=== PATIENT | female | born 1950 | race Caucasian/White ===

== ENCOUNTER → 2023-04-30 11:09 | Outpatient (REF) | payer MEDICARE, OTHER, SELFPAY | LOC: RAD 11:09 | PROVIDERS: ATTENDING PHYSICIAN Nurse Practitioner Family | DX: M25.512 Pain in left shoulder (principal) | CPT/HCPCS: 73030 ==

== ENCOUNTER 2023-05-08 06:19 | Day surgery (SDC) | payer MEDICARE, OTHER, SELFPAY ==
[2023-04-30 12:49] VITALS: BMI 22.5
[2023-05-08] VITALS (18 sets, daily range): BP systolic 129–167; BP diastolic 65–92; BMI 22.5
[2023-05-08] MEDS: NEURONTIN 300 MG PO (09:28)
[2023-05-08] MEDS: TYLENOL 1000 MG PO (09:28)
[2023-05-08] MEDS: HEPARIN 5000 UNITS SC (09:28)
[2023-05-08] MEDS: NORMOSOL-R 1000 IV (09:52)
[2023-05-08 11:25] LABS: Turbo PTH 2455 pg/ml (13.6-85.8)
[2023-05-08 12:04] LABS: Turbo PTH 72.9 pg/ml (13.6-85.8)
--- NOTE | 2023-05-08 12:43 | OR.RPT ---
Operative Report
Operative Report
Date of Operation: May 08, 2023
Preoperative Diagnosis: �Hyperparathyroidism - E210
Postoperative Diagnosis: Same
Surgeon: Floyd Quinteros M.D.
Operation: Minimally Invasive Inferior Parathyroidectomy - 00673
Anesthesia: GET
Estimated Blood Loss: 3 cc
Drains: None
Specimen: �Left inferior neck nodule, rule out parathyroid adenoma
Complications: �None
Procedure:
The patient was taken to the operating room and placed in the usual supine position. After adequate general endotracheal anesthesia was established, the patient's neck was extended, prepped, and draped in the typical sterile fashion. A 4 cm
transcervical incision was made two fingerbreadths above the sternal notch. The skin incision was made with the #15 blade, and this was taken through the skin into the subcutaneous tissue. The underlying platysma muscle was divided, and subplatysmal
flaps were created superiorly to the thyroid cartilage and inferiorly to the sternal notch. Strap muscles were identified and at the midline.
Attention was turned to the left side of the neck. The left thyroid lobe was mobilized medially. During this process, the left recurrent laryngeal nerve was identified and preserved throughout the surgery. The left lower neck nodule was identified
and noted to be enlarged, excised, and sent to the pathology department, which showed a hypercellular parathyroid gland. The normal-appearing left superior parathyroid gland was identified and preserved. The intraoperative PTH levels normalized.
After obtaining adequate hemostasis, the strap muscles were reapproximated with #3-0 Vicryl in a running fashion. The platysma muscle was reapproximated with #3-0 Vicryl in an interrupted fashion, and the skin was approximated with #4-0 Monocryl in
a running subcuticular fashion. The Steri-Strips and sterile dressings were placed. The patient tolerated the procedure well. The final instrument, needle, and sponge counts were correct. The patient was extubated and transferred to the PACU.
--- NOTE | 2023-05-08 16:57 | PTCARENOTE ---
Patient admitted from same day services post parathyroidectomy.She was supposed to go home but she is home alone with only neighbors to check on her so they decided to let her stay overnight with discharge tomorrow.The anterior neck dressing is
clean and intact with no drainage.vital signs are stable.The patient says herpain is not to bad but rates it at a 6 out of 10.the patient is in her chair with the call naidu in reach ordering her dinner.
[2023-05-08] MEDS: FEOSOL 325 MG PO (20:00)
[2023-05-08] MEDS: TYLENOL 650 MG PO (20:00)
[2023-05-08] MEDS: DESYREL 50 MG PO (23:19)
[2023-05-08] MEDS: LIPITOR 10 MG PO (23:19)
[2023-05-08] MEDS: LATUDA 60 MG PO (23:20)
[2023-05-09] MEDS: TYLENOL PO (00:24)
[2023-05-09] MEDS: TYLENOL 650 MG PO ×2 (03:22→08:15)
[2023-05-09 03:38] VITALS: BP 144/86
[2023-05-09 07:01] VITALS: BP 145/71
[2023-05-09] MEDS: LAMICTAL 25 MG PO (08:15)
[2023-05-09] MEDS: CLARITIN 10 MG PO (08:15)
[2023-05-09] MEDS: CELEXA 20 MG PO (08:15)
[2023-05-09] MEDS: FEOSOL 325 MG PO (08:15)
[2023-05-09] MEDS: NORVASC 10 MG PO (08:16)
[2023-05-09] MEDS: ESKALITH 300 MG PO (08:16)
--- NOTE | 2023-05-09 09:10 | W.DS.TRANS ---
DC Summary - [employer] Line [employer]
-
Discharge Instructions:
Sleep Apnea Risk Low
Discharge Diagnosis/Procedures hyperparathyroidism
Diet No restrictions
Activity No strenuous activity
Driving Restrictions No driving for 24 hours
Bathing Restrictions OK to Shower
Instructions:
Stand-Alone Forms:
Changes to Home Medications: No
Discharge Medications:
DC Medications w/original date entered in [employer]
amlodipine 10 mg tablet 10 mg PO DAILY 12/06/22
aspirin 81 mg capsule 81 mg PO DAILY 12/06/22
atorvastatin 10 mg tablet 10 mg PO HS 12/06/22
citalopram 40 mg tablet 20 mg PO DAILY 12/06/22
denosumab 60 mg/mL subcutaneous syringe (Prolia) 50 mg SC [id number] 12/06/22
ferrous sulfate 325 mg (65 mg iron) tablet 325 mg PO BID 12/06/22
lorazepam 0.5 mg tablet 0.5 mg PO Q12H 12/06/22
lurasidone 20 mg tablet 60 mg PO HS 12/06/22
trazodone 50 mg tablet 50 mg PO HS 12/06/22
Probiotic 1 cap PO DAILY 05/04/23
lamotrigine 25 mg tablet 25 mg PO DAILY 05/04/23
lithium carbonate 150 mg capsule 150 mg PO Q48H 05/04/23
lithium carbonate 150 mg capsule 300 mg PO Q48H 05/04/23
loratadine 10 mg tablet 10 mg PO DAILY 05/04/23
Home Medication Changes
Pending Results: No
--- NOTE | 2023-05-09 12:45 | CM ---
Addendum entered by Aram Whitfield 05/09/23 12:47:
Patient was outpatient status.
Original Note:
Patient medically cleared for discharge this am. Patient left building prior to initial assessment at 10:45am. Patient arranged for transport home.
== END 2023-05-09 11:24 | disposition home or self-care (01) ==
LOC: SDS 06:19
PROVIDERS: ATTENDING PHYSICIAN Surgery; FAMILY PHYSICIAN Nurse Practitioner Family
DX: D35.1 Benign neoplasm of parathyroid gland (principal); E21.0 Primary hyperparathyroidism
CPT/HCPCS: 60500; 88305; 88332; 83970; 88331

== ENCOUNTER → 2023-05-18 11:58 | Outpatient (REF) | payer MEDICARE, OTHER, SELFPAY ==
[2023-05-18 13:48] LABS: Albumin 4.1 g/dl (3.5-5.0); Blood Urea Nitrogen 23 mg/dl (7-17); Calcium 10.6 mg/dl (8.4-10.2); Carbon Dioxide 25 mmol/L (22-30); Chloride 106 mmol/L (98-107); Glucose 90 mg/dl (70-99); Phosphorus 4.7 mg/dl (2.5-4.5); Potassium 4.5 mmol/L (3.5-5.1); Sodium 137 mmol/L (135-145); eGFR 39.48
== END ==
LOC: REG 11:58
PROVIDERS: ATTENDING PHYSICIAN Internal Medicine; FAMILY PHYSICIAN Nurse Practitioner Family
DX: I10 Essential (primary) hypertension (principal); E78.2 Mixed hyperlipidemia; E83.52 Hypercalcemia; R80.9 Proteinuria, unspecified
CPT/HCPCS: 36415; 80069

== ENCOUNTER → 2023-07-13 13:33 | Outpatient (REF) | payer MEDICARE, OTHER, SELFPAY ==
[2023-07-13 14:58] LABS: Albumin 4.6 g/dl (3.5-5.0); Blood Urea Nitrogen 18 mg/dl (7-17); Carbon Dioxide 25 mmol/L (22-30); Chloride 104 mmol/L (98-107); Glucose 103 mg/dl (70-99); Phosphorus 4.7 mg/dl (2.5-4.5); Potassium 4.2 mmol/L (3.5-5.1); Sodium 137 mmol/L (135-145); eGFR 36.34
[2023-07-15 17:44] LABS: Phospholipase A2 Receptor, IgG <1:10 (<1:10)
[2023-07-15 21:07] LABS: ANA, IgG Reflex to HEp-2 Detected (None Detected)
[2023-07-16 01:30] LABS: Complement C3 132 mg/dl (88-165)
[2023-07-16 01:52] LABS: Myeloperoxidase Antibody 0 AU/mL (0-19); Serine Protease-3, IgG 0 AU/mL (0-19)
[2023-07-16 14:41] LABS: ANA, HEp-2, IgG Detected (<1:80)
[2023-07-17 07:27] LABS: ANA Pattern Homogeneous
== END ==
LOC: REG 13:33
PROVIDERS: ATTENDING PHYSICIAN Internal Medicine; FAMILY PHYSICIAN Nurse Practitioner Family
DX: I10 Essential (primary) hypertension (principal); E78.2 Mixed hyperlipidemia; E83.52 Hypercalcemia; E87.1 Hypo-osmolality and hyponatremia; R80.9 Proteinuria, unspecified; D50.9 Iron deficiency anemia, unspecified
CPT/HCPCS: 36415; 80069; 83516; 86038; 86039; 86160; 86255

== ENCOUNTER → 2023-07-20 14:00 | Outpatient (REF) | payer MEDICARE, OTHER, SELFPAY ==
[2023-07-20 14:39] LABS: Urine Albumin Trace (Neg - Trace); Urine Bilirubin Negative (Negative); Urine Character Slightly Cloudy (Clear); Urine Color Yellow; Urine Glucose Negative (Negative); Urine Ketone Negative (Negative); Urine Leukocyte 2+ (Negative); Urine Nitrite Negative (Negative); Urine Occult Blood Negative (Negative); Urine Specific Gravity 1.005 (<1.030); Urine Urobilinogen Negative (Neg - 1+)
[2023-07-20 14:46] LABS: Urine Squamous Cell 0-2 /LPF (Few)
[2023-07-20 14:51] LABS: Urine Bacteria Moderate (Negative); Urine White Cell 30-40 /HPF (0-5)
[2023-07-20 14:52] LABS: Urine Red Blood Cell 0-2 /HPF (0-2)
[2023-07-20 15:16] LABS: Protein/creatinine Ratio 1.5; Urine Protein 30 mg/dl
== END ==
LOC: REG 14:00
PROVIDERS: ATTENDING PHYSICIAN Internal Medicine; FAMILY PHYSICIAN Nurse Practitioner Family
DX: R80.9 Proteinuria, unspecified (principal)
CPT/HCPCS: 81003; 81015; 82570; 84156

== ENCOUNTER 2023-08-24 09:06 | Outpatient (RCR) | payer MEDICARE, OTHER, SELFPAY | END 2023-08-24 23:59 | disposition home or self-care (01) | LOC: RPT 09:06 | PROVIDERS: ATTENDING PHYSICIAN Nurse Practitioner Family | DX: R15.9 Full incontinence of feces (principal); N39.41 Urge incontinence; M62.81 Muscle weakness (generalized); R27.8 Other lack of coordination; Z73.6 Limitation of activities due to disability | CPT/HCPCS: 97162; 97530 ==

== ENCOUNTER → 2023-09-10 10:39 | Outpatient (REF) | payer MEDICARE, OTHER, SELFPAY ==
[2023-09-10 13:34] LABS: Albumin 4.1 g/dl (3.5-5.0); Blood Urea Nitrogen 25 mg/dl (7-17); Carbon Dioxide 26 mmol/L (22-30); Chloride 106 mmol/L (98-107); Glucose 88 mg/dl (70-99); Phosphorus 4.2 mg/dl (2.5-4.5); Potassium 4.8 mmol/L (3.5-5.1); Sodium 138 mmol/L (135-145); eGFR 36.34
== END ==
LOC: REG 10:39
PROVIDERS: ATTENDING PHYSICIAN Internal Medicine; FAMILY PHYSICIAN Nurse Practitioner Family
DX: R80.9 Proteinuria, unspecified (principal)
CPT/HCPCS: 36415; 80069

== ENCOUNTER 2023-09-17 15:57 | Outpatient (RCR) | payer MEDICARE, OTHER, SELFPAY | END 2023-09-17 23:59 | disposition home or self-care (01) | LOC: RPT 15:57 | PROVIDERS: ATTENDING PHYSICIAN Nurse Practitioner Family | DX: R15.9 Full incontinence of feces (principal); N39.41 Urge incontinence; M62.81 Muscle weakness (generalized); R27.8 Other lack of coordination; Z73.6 Limitation of activities due to disability | CPT/HCPCS: 97140; 97530 ==

== ENCOUNTER 2023-09-24 11:54 | Outpatient (RCR) | payer MEDICARE, OTHER, SELFPAY | END 2023-09-24 23:59 | disposition home or self-care (01) | LOC: RPT 11:54 | PROVIDERS: ATTENDING PHYSICIAN Nurse Practitioner Family | DX: R32 Unspecified urinary incontinence (principal); R15.9 Full incontinence of feces; N39.41 Urge incontinence; M62.81 Muscle weakness (generalized); R27.8 Other lack of coordination; Z73.6 Limitation of activities due to disability | CPT/HCPCS: 97140; 97530 ==

== ENCOUNTER → 2023-10-02 15:47 | Outpatient (REF) | payer MEDICARE, OTHER, SELFPAY | LOC: HWRAD 15:47 | PROVIDERS: ATTENDING PHYSICIAN Orthopaedic Surgery; FAMILY PHYSICIAN Nurse Practitioner Family | DX: M25.512 Pain in left shoulder (principal) | CPT/HCPCS: 73200 ==

== ENCOUNTER → 2023-10-03 10:43 | Outpatient (REF) | payer MEDICARE, OTHER, SELFPAY ==
[2023-10-03 13:16] LABS: Albumin 4.5 g/dl (3.5-5.0); Blood Urea Nitrogen 24 mg/dl (7-17); Calcium 11.1 mg/dl (8.4-10.2); Carbon Dioxide 24 mmol/L (22-30); Chloride 106 mmol/L (98-107); Glucose 99 mg/dl (70-99); Phosphorus 4.8 mg/dl (2.5-4.5); Potassium 4.7 mmol/L (3.5-5.1); Sodium 139 mmol/L (135-145); eGFR 36.34
== END ==
LOC: REG 10:43
PROVIDERS: ATTENDING PHYSICIAN Internal Medicine; FAMILY PHYSICIAN Nurse Practitioner Family
DX: E83.52 Hypercalcemia (principal); N18.32 Chronic kidney disease, stage 3b; N30.00 Acute cystitis without hematuria; R80.9 Proteinuria, unspecified
CPT/HCPCS: 36415; 80069

== ENCOUNTER → 2023-10-04 10:44 | Outpatient (REF) | payer MEDICARE, OTHER, SELFPAY ==
[2023-10-04 12:15] LABS: Urine Protein 25 mg/dl (0-12)
== END ==
LOC: REG 10:44
PROVIDERS: ATTENDING PHYSICIAN Internal Medicine; FAMILY PHYSICIAN Nurse Practitioner Family
DX: E83.52 Hypercalcemia (principal); N18.32 Chronic kidney disease, stage 3b; N30.00 Acute cystitis without hematuria; R80.9 Proteinuria, unspecified
CPT/HCPCS: 82570; 84156

== ENCOUNTER 2023-10-12 04:17 | Emergency (ER) | payer MEDICARE, OTHER, SELFPAY ==
[2023-10-12] VITALS (7 sets, daily range): BP systolic 146–178; BP diastolic 71–79; PULSE 60–70; O2SAT 99; BMI 21.5
--- NOTE | 2023-10-12 04:32 | ED.GENMED ---
History of Present Illness
<SHARIF Youssef - Last Filed: 10/12/23 07:07>
General
Chief Complaint: Fall
Source: patient
Exam Limitations: none
Time Seen by Provider: 10/12/23 04:31
Nursing documentation reviewed up to this point in time: agreed with
History of Present Illness
History of Present Illness:
73 year old female presents for evaluation of a fall. Pt endorses 2 falls from a seated position on 10/09 after experiencing a transient sensation of weakness prior to each fall. This morning, pt endorses a similar sensation while sitting in a chair
which prompted EMS arrival. She denies falling this morning. Pt did not hit her head or lose consciousness on 10/09 or this morning. Currently on ASA 81mg daily. Pt believes that she has not been eating enough recently with associated weight loss,
but denies any noticeable triggers for her sx. She notes that her daily dose of lorazepam was decreased from 4mg to 3mg on 10/09, but denies any other recent medication adjustments. She denies dizziness, vision changes, WHITE, N/V, CP, SOB, fever,
chills, urinary symptoms, and changes in bowel habits. No prior fall history. Pt does endorse becoming increasingly forgetful recently, currently lives alone.
Review of Systems
<SHARIF Youssef - Last Filed: 10/12/23 07:07>
Review of Systems
Allergies reviewed?: Yes
Constitutional: Reports no symptoms
EENT: Reports no symptoms
Respiratory: Reports no symptoms
Cardiac: Reports no symptoms
ABD/GI: Reports no symptoms
: Reports no symptoms
Musculoskeletal: Reports no symptoms
Skin: Reports no symptoms
Neurological: Reports weakness
Endocrine: Reports no symptoms
Hematologic/Lymphatic: Reports no symptoms
Psychiatric: Reports no symptoms
Phy Exam
<SHARIF Youssef - Last Filed: 10/12/23 07:07>
General Physical Exam
General Presentation: well appearing
General age: appears stated age
General Skin: warm
General Habitus: elderly
General Mental: alert
General Hydration: dry mucous membranes
ENT Exam
ENT Exam: normocephalic
Cardiovascular Exam
Cardiovascular Exam: regular rate/rhythm
Pulmonary Exam
Pulmonary Exam: lungs clear and no respiratory distress
Gastrointestinal Exam
Gastrointestinal Exam: normal bowel sounds
Neurological Exam
Neurological Exam: alert, oriented x3 and speech normal
Musculoskeletal Exam
Musculoskeletal Exam: other (no neck pain or TTP of spine )
Skin Exam
Skin Exam: normal color
Course
<German Norman, [facility] - Last Filed: 10/12/23 07:07>
Orders/Labs/Results
Orders:
Orders
10/12/23 04:28
Electrocardiogram (*1) Urgent
Reason for Study: Vertigo / Dizzy
Interrogate Pacemaker- Treatment ONCE
10/12/23 04:29
EKG- Treatment ONCE
10/12/23 04:30
Complete Blood Count/With Diff Urgent
Comprehensive Metabolic Panel Urgent
10/12/23 05:13
Urinalysis Reflex To Culture Urgent
Date Specimen was Collected: 10/12/23
Time Specimen was Collected: 05:12
Urine Microscopic Reflex Cult Urgent
Urine Culture Urgent
CROW Source: U
Specimen Description:
Date Specimen was Collected: 10/12/23
Time Specimen was Collected: 05:12
10/12/23 05:18
CT Head W/o Iv Contrast Urgent
Comment:
Reason For Exam: recent fall
10/12/23 06:54
Fosfomycin [Monurol] 3 gm PO ONCE ONE
10/12/23 07:12
Case Management Consult ONCE
Case Management Consult: VN/Home Care
Comment: frequent falls, dizziness
10/12/23 12:49
Code Status As Directed
Resuscitation Status: Full Code
Abnormal Lab Results
10/12/23 10/12/23
04:30 05:13
RBC 2.92 L 10^6/uL
(4.20-5.40)
Hgb 9.8 L g/dL
(12.0-16.0)
Hct 30.3 L %
(37.0-47.0)
MCV 103.8 H fL
(81.0-99.0)
MCH 33.6 H pg
(27.0-31.0)
MCHC 32.3 L g/dL
(33.0-37.0)
Lymphocytes % 19.5 L %
(20.5-51.1)
Monocytes % 9.9 H %
(1.7-9.3)
Chloride 109 H mmol/L
(98-107)
BUN 24 H mg/dl
(7-17)
Creatinine 1.4 H mg/dL
(0.6-1.0)
Calcium 11.1 H mg/dl
(8.4-10.2)
Urine Nitrite (Reflex) Positive A
(Negative)
Leukocyte Esterase Rfl 2+ A
(Negative)
Urine WBC (Reflex) 21-25 A /HPF
(0-5)
Urine Bacteria (Reflex) Many A
(Negative)
10/12/23 04:30
10/12/23 04:30
Vital Signs
Initial and Last Documented VS:
Initial Vital Signs
Temp Pulse Resp BP Pulse Ox
98.3 F 62 17 156/71 95
10/12/23 04:21 10/12/23 04:21 10/12/23 04:21 10/12/23 04:21 10/12/23 04:21
Last Documented Vital Signs
Temp Pulse Resp BP Pulse Ox
98.3 F 60 16 149/71 96
10/12/23 04:21 10/12/23 10:41 10/12/23 10:41 10/12/23 10:41 10/12/23 10:41
<Bruce Haddad, DO - Last Filed: 10/12/23 07:10>
Orders/Labs/Results
Orders:
Orders
10/12/23 04:28
Electrocardiogram (*1) Urgent
Reason for Study: Vertigo / Dizzy
Interrogate Pacemaker- Treatment ONCE
10/12/23 04:29
EKG- Treatment ONCE
10/12/23 04:30
Complete Blood Count/With Diff Urgent
Comprehensive Metabolic Panel Urgent
10/12/23 05:13
Urinalysis Reflex To Culture Urgent
Date Specimen was Collected: 10/12/23
Time Specimen was Collected: 05:12
Urine Microscopic Reflex Cult Urgent
Urine Culture Urgent
CROW Source: U
Specimen Description:
Date Specimen was Collected: 10/12/23
Time Specimen was Collected: 05:12
10/12/23 05:18
CT Head W/o Iv Contrast Urgent
Comment:
Reason For Exam: recent fall
10/12/23 06:54
Fosfomycin [Monurol] 3 gm PO ONCE ONE
10/12/23 07:12
Case Management Consult ONCE
Case Management Consult: VN/Home Care
Comment: frequent falls, dizziness
10/12/23 12:49
Code Status As Directed
Resuscitation Status: Full Code
Abnormal Lab Results
10/12/23 10/12/23
04:30 05:13
RBC 2.92 L 10^6/uL
(4.20-5.40)
Hgb 9.8 L g/dL
(12.0-16.0)
Hct 30.3 L %
(37.0-47.0)
MCV 103.8 H fL
(81.0-99.0)
MCH 33.6 H pg
(27.0-31.0)
MCHC 32.3 L g/dL
(33.0-37.0)
Lymphocytes % 19.5 L %
(20.5-51.1)
Monocytes % 9.9 H %
(1.7-9.3)
Chloride 109 H mmol/L
(98-107)
BUN 24 H mg/dl
(7-17)
Creatinine 1.4 H mg/dL
(0.6-1.0)
Calcium 11.1 H mg/dl
(8.4-10.2)
Urine Nitrite (Reflex) Positive A
(Negative)
Leukocyte Esterase Rfl 2+ A
(Negative)
Urine WBC (Reflex) 21-25 A /HPF
(0-5)
Urine Bacteria (Reflex) Many A
(Negative)
10/12/23 04:30
10/12/23 04:30
Vital Signs
Initial and Last Documented VS:
Initial Vital Signs
Temp Pulse Resp BP Pulse Ox
98.3 F 62 17 156/71 95
10/12/23 04:21 10/12/23 04:21 10/12/23 04:21 10/12/23 04:21 10/12/23 04:21
Last Documented Vital Signs
Temp Pulse Resp BP Pulse Ox
98.3 F 60 16 149/71 96
10/12/23 04:21 10/12/23 10:41 10/12/23 10:41 10/12/23 10:41 10/12/23 10:41
<Jj Redman PA-C - Last Filed: 10/14/23 07:14>
Orders/Labs/Results
Orders:
Orders
10/12/23 04:28
Electrocardiogram (*1) Urgent
Reason for Study: Vertigo / Dizzy
Interrogate Pacemaker- Treatment ONCE
10/12/23 04:29
EKG- Treatment ONCE
10/12/23 04:30
Complete Blood Count/With Diff Urgent
Comprehensive Metabolic Panel Urgent
10/12/23 05:13
Urinalysis Reflex To Culture Urgent
Date Specimen was Collected: 10/12/23
Time Specimen was Collected: 05:12
Urine Microscopic Reflex Cult Urgent
Urine Culture Urgent
CROW Source: U
Specimen Description:
Date Specimen was Collected: 10/12/23
Time Specimen was Collected: 05:12
10/12/23 05:18
CT Head W/o Iv Contrast Urgent
Comment:
Reason For Exam: recent fall
10/12/23 06:54
Fosfomycin [Monurol] 3 gm PO ONCE ONE
10/12/23 07:12
Case Management Consult ONCE
Case Management Consult: VN/Home Care
Comment: frequent falls, dizziness
10/12/23 12:49
Code Status As Directed
Resuscitation Status: Full Code
Abnormal Lab Results
10/12/23 10/12/23
04:30 05:13
RBC 2.92 L 10^6/uL
(4.20-5.40)
Hgb 9.8 L g/dL
(12.0-16.0)
Hct 30.3 L %
(37.0-47.0)
MCV 103.8 H fL
(81.0-99.0)
MCH 33.6 H pg
(27.0-31.0)
MCHC 32.3 L g/dL
(33.0-37.0)
Lymphocytes % 19.5 L %
(20.5-51.1)
Monocytes % 9.9 H %
(1.7-9.3)
Chloride 109 H mmol/L
(98-107)
BUN 24 H mg/dl
(7-17)
Creatinine 1.4 H mg/dL
(0.6-1.0)
Calcium 11.1 H mg/dl
(8.4-10.2)
Urine Nitrite (Reflex) Positive A
(Negative)
Leukocyte Esterase Rfl 2+ A
(Negative)
Urine WBC (Reflex) 21-25 A /HPF
(0-5)
Urine Bacteria (Reflex) Many A
(Negative)
10/12/23 04:30
10/12/23 04:30
Vital Signs
Initial and Last Documented VS:
Initial Vital Signs
Temp Pulse Resp BP Pulse Ox
98.3 F 62 17 156/71 95
10/12/23 04:21 10/12/23 04:21 10/12/23 04:21 10/12/23 04:21 10/12/23 04:21
Last Documented Vital Signs
Temp Pulse Resp BP Pulse Ox
98.3 F 60 16 149/71 96
10/12/23 04:21 10/12/23 10:41 10/12/23 10:41 10/12/23 10:41 10/12/23 10:41
<SHARIF Youssef - Last Filed: 10/12/23 07:07>
MDM/Problems Addressed
Differential Diagnosis Includes:
BPPV, Meniere's disease, CVA, anemia, dehydration
<SHARIF Youssef - Last Filed: 10/12/23 07:07>
*Critical Care Note
Total Time (30-74mins, 75-104mins- exclusive of procedures): Not Applicable
<Jj Redman PA-C - Last Filed: 10/14/23 07:14>
Update Note
Update Note:
October 14, 2023 7:14 AM: Urine culture shows greater than 100,000 colony-forming units of E. coli. Patient treated with fosfomycin. Sensitivities pending
ED Attending Note
<SHARIF Youssef - Last Filed: 10/12/23 07:07>
-
Portions of this chart may have been created with voice recognition software.� Occasional wrong word or��sound alike� substitutions may have occurred due to the inherent limitations of voice recognition software.
<Bruce Haddad DO - Last Filed: 10/12/23 07:10>
ED Attending Note
Patient seen and examined by attending physician: Yes
I performed the substantive portion of visit, reviewed & personally made and approve the management plan that is documented in note by myself or LYNN.: Yes
ED Attending Note:
This is a pleasant 73f, who presents after a fall from the seated position. She was sitting in a chair when she experienced weakness. She has fallen several times over the past few days. Patient still complaining of dizziness. She lives alone in her
home. She denies any other complaints. Patient was seen in conjunction with the PA student. I have reviewed and agree with his history and treatment plan. On my independant examination, Patient is awake, alert, and oriented x3. In no acute distress.
No horizontal or vertical nystagmus.
Discharge Plan
Departure
Patient Disposition: Home (Routine Discharge)
Date of Disposition: 10/12/23
Time of Disposition: 10:30
Patient with high blood pressure during this ER visit?: Yes
Discharge Problem:
Acute UTI, Weakness, Falls frequently
Instructions: Urinary tract infections in adults, Preventing falls in adults, BLOOD PRESSURE
Prescriptions:
No Action
citalopram 40 mg Tablet
40 mg PO HS
trazodone 50 mg Tablet
50 mg PO HS
atorvastatin 10 mg Tablet
10 mg PO NOON
lorazepam 0.5 mg Tablet
0.5 mg PO TID
amlodipine 10 mg Tablet
10 mg PO NOON
ferrous sulfate 325 mg (65 mg iron) Tablet
325 mg PO NOON
lurasidone 20 mg Tablet
60 mg PO HS
Patient Comments:
10/12/23: fills 40mg and 20mg tablets, unsure of the strengths/amounts she takes.
aspirin 81 mg Capsule
81 mg PO NOON
lithium carbonate 150 mg Capsule
150 mg PO HS
lamotrigine 25 mg Tablet
25 mg PO HS
Patient Comments:
10/12/23: fills 50mg and 25mg tablets, unsure of the strength/amounts she takes.
loratadine 10 mg Tablet
10 mg PO NOON
losartan 50 mg Tablet
50 mg PO NOON
acetaminophen [Tylenol Ex Str Rapid Release] 500 mg Tablet
1,500 mg PO DAILYPRN PRN (Reason: mild pain)
aripiprazole 2 mg Tablet
2 mg PO HS
Visbiome 112.5 billion cell Capsule
1 cap PO NOON
Referrals:
Korin Gaines CRNP [Family Provider] - Call in 1-3 days for appt
Interventions
Interventions:
*Risk Screen - Suicide Last Done: 10/12/23 04:21
*General Assessment Last Done: 10/12/23 04:21
*Neglect/Abuse Screening Last Done: 10/12/23 04:21
ED- Fall Risk Assessment Last Done: 10/12/23 04:21
*ED COVID-19 Vaccine History Last Done: 10/12/23 04:21
*Nursing Disposition Last Done: 10/12/23 10:41
ED-Musculoskeletal Assessment Last Done: 10/12/23 04:51
ED- Neurological Assessment Last Done: 10/12/23 04:51
ED-Skin Assessment Last Done: 10/12/23 04:51
Discharge Date and Time
Discharge Date/Time: 10/12/23 10:59
Print Language: GERMAN
[2023-10-12 05:50] LABS: % Basophils 0.3 % (0-2); % Eosinophils 1.4 % (0-6); % Immature Granulocytes 0.2 % (0-0.5); % Lymphocytes 19.5 % (20.5-51.1); % Monocytes 9.9 % (1.7-9.3); % Neutrophils 68.7 % (42.2-75.2); Hematocrit 30.3 % (37.0-47.0); Hemoglobin 9.8 g/dL (12.0-16.0); Mean Corp Hgb Conc. 32.3 g/dL (33.0-37.0); Mean Corpuscular Hgb 33.6 pg (27.0-31.0); Mean Corpuscular Volume 103.8 fL (81.0-99.0); Mean Platelet Volume 9.4 fL (7.4-10.4); Platelet Count 204 10^3/uL (130-400); Red Blood Cell Count 2.92 10^6/uL (4.20-5.40); Red Cell Dist. Width 13.6 % (11.5-14.5); White Blood Cell Count 6.5 10^3/uL (4.8-10.8)
[2023-10-12 05:51] LABS: Absolute Eosinophils 0.1 10^3/uL (0-0.7); Absolute Lymphocytes 1.3 10^3/uL (1.2-3.4); Absolute Monocytes 0.6 10^3/uL (0.1-0.6); Absolute Neutrophils 4.4 10^3/uL (1.4-6.5); Nucleated Red Blood Cells % 0 %
[2023-10-12 06:04] LABS: ALT (SGPT) 32 U/L (0-35); AST (SGOT) 35 U/L (14-36); Albumin 4.3 g/dl (3.5-5.0); Alkaline Phosphatase 120 U/L (38-126); Blood Urea Nitrogen 24 mg/dl (7-17); Calcium 11.1 mg/dl (8.4-10.2); Carbon Dioxide 24 mmol/L (22-30); Chloride 109 mmol/L (98-107); Estimated Creatinine Clearance 29 ml/min; Glucose 96 mg/dl (70-99); Potassium 4.4 mmol/L (3.5-5.1); Sodium 140 mmol/L (135-145); Total Bilirubin 0.3 mg/dl (0.2-1.3); Total Protein 6.9 g/dl (6.3-8.2); eGFR 39.23
[2023-10-12 06:38] LABS: Urine Albumin Negative (Neg - Trace); Urine Bilirubin Negative (Negative); Urine Character Clear (Clear); Urine Color Yellow; Urine Glucose Negative (Negative); Urine Ketone Negative (Negative); Urine Leukocyte 2+ (Negative); Urine Nitrite Positive (Negative); Urine Occult Blood Negative (Negative); Urine Urobilinogen Negative (Neg - 1+)
[2023-10-12] MEDS: MONUROL 3 GM PO (07:22)
[2023-10-12 08:31] LABS: Urine Urothelial Cell 0-2 /LPF (FEW)
[2023-10-12 08:32] LABS: Urine Amorphous Seen; Urine Bacteria Many (Negative); Urine Red Blood Cell 0-2 /HPF (0-2); Urine White Cell 21-25 /HPF (0-5)
--- NOTE | 2023-10-12 09:34 | CM ---
Addendum entered by Marcy London 10/12/23 12:49:
Tash from [facility] accepted patient for PT/OT/SN. CM manually faxed over clinicals to Tash at [phone]. Referral sent to [facility] via online link.
Addendum entered by Marcy London 10/12/23 09:55:
Informed patient that would be calling her to set up her first appointment. Patient verbalized understanding and reiterated that she would be using her Rolator from now on when ambulating around her apartment. She stated that she had a recycler forklift driver truck driver who
could possibly transport her back home. If her recycler forklift driver truck driver is unavailable she will use the '[employer]' service. She was also agreeable to have a [facility] referral placed as well.
Addendum entered by Marcy London 10/12/23 09:45:
Case Management attempted to call [facility], no one answered. Left to call CM back at cell phone number.
Original Note:
CM reviewed chart. Patient has been having falls at home. PT/OT evaluated patient and recommending STR. Patient has Medicare, and it would be private pay. Patient shared that she would not be able to afford STR.
Patient would like to have home PT/OT.
CM will place referrals, once [employer] is up and running again. IT is currently looking into the situation.
== END 2023-10-12 10:59 | disposition home or self-care (01) ==
LOC: EMR 04:17
PROVIDERS: EMERGENCY PHYSICIAN Student in an Organized Health Care Education/Training Program; FAMILY PHYSICIAN Nurse Practitioner Family
DX: N39.0 Urinary tract infection, site not specified (principal); B96.20 Unspecified Escherichia coli [E. coli] as the cause of diseases classified elsewhere; R53.1 Weakness; R42 Dizziness and giddiness; R29.6 Repeated falls; Z79.82 Long term (current) use of aspirin
CPT/HCPCS: 99285; 51701; 93288; 70450; 80053; 81003; 81015; 85025; 87086; 87088; 87186; 93005

== ENCOUNTER 2023-10-14 13:01 | Emergency (ER) | payer MEDICARE, OTHER, SELFPAY ==
[2023-10-14 13:08] VITALS: BP 155/86
--- NOTE | 2023-10-14 16:13 | ED.MUSCINJ ---
HPI-Injury
General
Chief Complaint: Musculo-Skeletal Complaint
Source: patient
Exam Limitations: none
Time Seen by Provider: 10/14/23 15:53
Nursing documentation reviewed up to this point in time: agreed with
History of Present Illness-Injury
Is this injury a work related problem?: No
Is pt an associate of [facility]?: No
Initial Injury comments:
Patient to ED with complaint of pain to left shoulder. She has been evaluated by orthopedics, is scheduled for joint replacement surgery in Dec. States she cant tolerate the pain. 2nd opinion with Lydia scheduled for sunday. SHe has been
taking tylenol without relief. She takes Lorazepam TiD for anxiety and her providers will not agree to narcotic pain medications due to her lorazepam use. Came to ED today due to pain. Pain is worse with movement. No new injury. Denies
fever/chills, recent illness.
Past History
Past History
ED Past Medical History: HTN and Psychiatric
Review of Systems
Review of Systems
Allergies reviewed?: Yes
All Other Systems: ROS reviewed and negative except as documented in HPI and ROS
Constitutional: Reports no symptoms
EENT: Reports no symptoms
Respiratory: Reports no symptoms
Cardiac: Reports no symptoms
ABD/GI: Reports no symptoms
Musculoskeletal: Reports joint pain (left shoulder pain)
Skin: Reports no symptoms
Neurological: Reports no symptoms
Psychiatric: Reports no symptoms
Musculoskeletal Injury Exam
Musculoskeletal Injury Exam
Left Shoulder:
Pain with Movement?: Severe
Tender to palpation?: Moderate
Soft tissue swelling?: Moderate
External deformity and angulation?: None
Joint effusion?: None
Contusion?: None
Hematoma-local bleeding into tissue?: None
Strain- Sprain- Tear (Connective tissue injury)?: None
Crepitus with movement?: Yes
Joint instability?: No
Malalignment/deformity?: No
Range of motion: Limited
Distal skin color and temperature: normal-warm & good color
Capillary Refill: normal
Normal distal neurovascular exam?: Yes
Peripheral Pulses: radial (left): 3+
Phy Exam
General Physical Exam
General Presentation: well appearing and mild distress
General age: appears stated age
General Skin: warm
General Habitus: normal
General Mental: alert
Cardiovascular Exam
Cardiovascular Exam: regular rate/rhythm and no edema
Pulmonary Exam
Pulmonary Exam: lungs clear and no respiratory distress
Musculoskeletal Exam
Musculoskeletal Exam: neuro vasc intact and other (Pain mild swelling left shoulder. Comfortable at rest, severe pain with movement.)
Skin Exam
Skin Exam: normal color, warm/dry and no rash
Psychiatric Exam
Psychiatric Exam: normal mood/affect
Injury Course
Orders/Labs/Results
Orders:
Orders
10/14/23 16:00
Lidocaine [Lidocaine 4% Patch] 1 patch TOPICAL NOW STA
Apply Lidocaine patch(s) to:: left shoulder
*Critical Care Note
Total Time (30-74mins, 75-104mins- exclusive of procedures): Not Applicable
Update Note
Update Note:
Patient to ED with left shoulder pain. Has joint replacement scheduled for dec but reports pain continues to worsen. No fever/chills, no erythema of joint. No history of trauma. Pain is worse with movement. No chest pain or pressure. Will try
lidocaine patch. She is discharged home and will follow [facility]w [facility] on .
ED Attending Note
-
Portions of this chart may have been created with voice recognition software.� Occasional wrong word or��sound alike� substitutions may have occurred due to the inherent limitations of voice recognition software.
Discharge Plan
Departure
Patient Disposition: Home (Routine Discharge)
Date of Disposition: 10/14/23
Time of Disposition: 16:11
Patient with high blood pressure during this ER visit?: No
Condition: Good
Covid-19: Not Applicable
Discharge Problem:
Shoulder joint pain
Instructions: Using Cold for Pain, Shoulder Pain ED
Prescriptions:
New
lidocaine 5 % adhesive patch,medicated
1 patch topical DAILY Qty: 15 0RF
No Action
citalopram 40 mg Tablet
40 mg PO HS
trazodone 50 mg Tablet
50 mg PO HS
atorvastatin 10 mg Tablet
10 mg PO NOON
lorazepam 0.5 mg Tablet
0.5 mg PO TID
amlodipine 10 mg Tablet
10 mg PO NOON
ferrous sulfate 325 mg (65 mg iron) Tablet
325 mg PO NOON
lurasidone 20 mg Tablet
60 mg PO HS
Patient Comments:
10/12/23: fills 40mg and 20mg tablets, unsure of the strengths/amounts she takes.
aspirin 81 mg Capsule
81 mg PO NOON
lithium carbonate 150 mg Capsule
150 mg PO HS
lamotrigine 25 mg Tablet
25 mg PO HS
Patient Comments:
10/12/23: fills 50mg and 25mg tablets, unsure of the strength/amounts she takes.
loratadine 10 mg Tablet
10 mg PO NOON
losartan 50 mg Tablet
50 mg PO NOON
acetaminophen [Tylenol Ex Str Rapid Release] 500 mg Tablet
1,500 mg PO DAILYPRN PRN (Reason: mild pain)
aripiprazole 2 mg Tablet
2 mg PO HS
Visbiome 112.5 billion cell Capsule
1 cap PO NOON
Referrals:
Korin Gaines CRNP [Family Provider] - Tomorrow
Activity Restrictions/Additional Instructions:
Follow up at your scheduled orthopedic appointment on Sunday
Interventions
Interventions:
*Risk Screen - Suicide Last Done: 10/14/23 16:33
*General Assessment Last Done: 10/14/23 13:16
*Neglect/Abuse Screening Last Done: 10/14/23 16:33
ED- Fall Risk Assessment Last Done: 10/14/23 16:33
*ED COVID-19 Vaccine History Last Done: 10/14/23 13:16
*Nursing Disposition Last Done: 10/14/23 16:43
ED-Musculoskeletal Assessment Last Done: 10/14/23 14:47
Discharge Date and Time
Discharge Date/Time: 10/14/23 16:50
Print Language: [place] ISLAND[place]
[2023-10-14 16:28] VITALS: BMI 20.9
[2023-10-14] MEDS: LIDOCAINE 4% PATCH 1 PATCH TOPICAL (16:29)
[2023-10-14 16:32] VITALS: BP 154/80
== END 2023-10-14 16:50 | disposition home or self-care (01) ==
LOC: EMR 13:01
PROVIDERS: EMERGENCY PHYSICIAN Emergency Medicine; FAMILY PHYSICIAN Nurse Practitioner Family
DX: M25.512 Pain in left shoulder (principal)
CPT/HCPCS: 99282

== ENCOUNTER 2023-10-23 04:26 | Emergency (ER) | payer MEDICARE, OTHER, SELFPAY ==
[2023-10-23 04:29] VITALS: BMI 22.1
--- NOTE | 2023-10-23 04:32 | ED.GENMED ---
History of Present Illness
General
Chief Complaint: Musculo-Skeletal Complaint
Time Seen by Provider: 10/23/23 04:29
History of Present Illness
History of Present Illness:
HPI: The patient presents with pain in the left arm/shoulder region. She has had pain similar to this in the past. She called an ambulance because the pain was severe. She normally responds to Lidoderm patches however her neighbor was not
immediately available to place the patch. She came in here by ambulance to get a lidocaine patch. She denies any injury. She denies any chest pain.
EXAM:
GENERAL: Well appearing but in mild to moderate distress due to pain at the left shoulder
HEENT: Moist oral mucosa
NEUROLOGIC: Fair strength all extremities, no coordination deficits
PSYCHIATRIC: Appropriate mental status, normal insight and judgement
EXTREMITIES: Marked edema to the left lower extremity which is chronic, markedly decreased active range of motion at the left shoulder which is acute on chronic, there is tenderness at the left AC joint
SKIN: No rash, no lesions
TIME OF INITIAL ENCOUNTER: 4:30 AM
NUMBER AND COMPLEXITY OF PROBLEMS ADDRESSED AT THE ENCOUNTER
� Chronic conditions affecting care: High blood pressure, hyperlipidemia, CKD, anxiety/bipolar
� Acute Exacerbation and/or Progression of Chronic Illness: This is an acute on chronic problem
� Differential Diagnosis includes: Acute exacerbation of chronic pain, doubt ACS as she has had similar episodes in the past and denies any chest pain
AMOUNT AND/OR COMPLEXITY OF DATA TO BE REVIEWED AND ANALYZED
� I performed an independent evaluation of and my interpretation is:
EKG:
CT:
X-rays:
Laboratory Studies:
Other:
� Review of other/old records: I reviewed CT imaging from earlier this month confirms osteoarthritis
� Clinical information was obtained by an independent historian: I spoke to EMS at bedside upon their arrival
� Prescriptions/Medications Considered but not given:
� Further testing considered but not performed: Consider imaging however the patient just had a CT of the left upper extremity that showed severe glenohumeral joint osteoarthritis
RISK OF COMPLICATIONS AND/OR MORBIDITY OR MORTALITY OF PATIENT MANAGEMENT
� Social determinants of health affecting care: [place]
� Discussion with other providers:
� Escalation of care including admission/observation vs risk of discharge considered: The patient primarily came here because she could not get a lidocaine patch on herself and had no neighbor to help. I have ordered lidocaine
patch. She has already been seen by orthopedics.
Past History
Past History
ED Past Medical History: HTN and Psychiatric
Phy Exam
Physical Exam
Physical Exam:
See HPI
Course
Orders/Labs/Results
Orders:
Orders
10/23/23 04:30
Lidocaine [Lidocaine 4% Patch] 1 patch TOPICAL NOW STA
Apply Lidocaine patch(s) to:: LUE
*Critical Care Note
Total Time (30-74mins, 75-104mins- exclusive of procedures): Not Applicable
ED Attending Note
-
Portions of this chart may have been created with voice recognition software.� Occasional wrong word or��sound alike� substitutions may have occurred due to the inherent limitations of voice recognition software.
Discharge Plan
Departure
Patient Disposition: Home (Routine Discharge)
Date of Disposition: 10/23/23
Time of Disposition: 04:30
Patient with high blood pressure during this ER visit?: Yes
Discharge Problem:
Arm pain, musculoskeletal
Instructions: Muscle and Bone Pain (DC)
Prescriptions:
No Action
citalopram 40 mg Tablet
40 mg PO HS
trazodone 50 mg Tablet
50 mg PO HS
atorvastatin 10 mg Tablet
10 mg PO NOON
lorazepam 0.5 mg Tablet
0.5 mg PO TID
amlodipine 10 mg Tablet
10 mg PO NOON
ferrous sulfate 325 mg (65 mg iron) Tablet
325 mg PO NOON
lurasidone 20 mg Tablet
60 mg PO HS
Patient Comments:
10/12/23: fills 40mg and 20mg tablets, unsure of the strengths/amounts she takes.
aspirin 81 mg Capsule
81 mg PO NOON
lithium carbonate 150 mg Capsule
150 mg PO HS
lamotrigine 25 mg Tablet
25 mg PO HS
Patient Comments:
10/12/23: fills 50mg and 25mg tablets, unsure of the strength/amounts she takes.
loratadine 10 mg Tablet
10 mg PO NOON
losartan 50 mg Tablet
50 mg PO NOON
acetaminophen [Tylenol Ex Str Rapid Release] 500 mg Tablet
1,500 mg PO DAILYPRN PRN (Reason: mild pain)
aripiprazole 2 mg Tablet
2 mg PO HS
Visbiome 112.5 billion cell Capsule
1 cap PO NOON
lidocaine 5 % adhesive patch,medicated
1 patch topical DAILY Qty: 15 0RF
Referrals:
Uli Gordon MD [Active] - Follow up in 5-7 days
Activity Restrictions/Additional Instructions:
Continue using lidocaine patches in the daytime and take them off at night. Return here if worse. Follow with your doctors.
Interventions
Interventions:
*Risk Screen - Suicide Last Done: 10/23/23 04:29
*General Assessment Last Done: 10/23/23 04:31
*Neglect/Abuse Screening Last Done: 10/23/23 04:29
ED-Musculoskeletal Assessment Last Done: 10/23/23 04:28
Discharge Date and Time
Print Language: GREENLANDIC
[2023-10-23] MEDS: LIDOCAINE 4% PATCH 1 PATCH TOPICAL (04:35)
== END 2023-10-23 05:09 | disposition home or self-care (01) ==
LOC: EMR 04:26
PROVIDERS: EMERGENCY PHYSICIAN Emergency Medicine; FAMILY PHYSICIAN Nurse Practitioner Family
DX: M79.622 Pain in left upper arm (principal); M79.602 Pain in left arm; M19.012 Primary osteoarthritis, left shoulder; I12.9 Hypertensive chronic kidney disease with stage 1 through stage 4 chronic kidney disease, or unspecified chronic kidney disease; N18.9 Chronic kidney disease, unspecified; E78.5 Hyperlipidemia, unspecified; F41.9 Anxiety disorder, unspecified; F31.9 Bipolar disorder, unspecified; Z79.82 Long term (current) use of aspirin
CPT/HCPCS: 99283

== ENCOUNTER → 2023-11-01 15:24 | Outpatient (REF) | payer MEDICARE, OTHER, SELFPAY ==
[2023-11-01 19:19] LABS: Urine Albumin Negative (Neg - Trace); Urine Bilirubin Negative (Negative); Urine Character Very Cloudy (Clear); Urine Color Yellow; Urine Glucose Negative (Negative); Urine Ketone Negative (Negative); Urine Leukocyte 2+ (Negative); Urine Nitrite Positive (Negative); Urine Occult Blood Negative (Negative); Urine Specific Gravity 1.005 (<1.030); Urine Urobilinogen Negative (Neg - 1+); Urine pH 6.5 (5.0-9.0)
[2023-11-01 19:27] LABS: Urine Bacteria Many (Negative); Urine White Cell 70-80 /HPF (0-5)
[2023-11-01 19:29] LABS: Urine Red Blood Cell 0-2 /HPF (0-2)
== END ==
LOC: CLAB 15:24
PROVIDERS: ATTENDING PHYSICIAN Nurse Practitioner Family
DX: N39.0 Urinary tract infection, site not specified (principal)
CPT/HCPCS: 81003; 81015; 87077; 87086; 87186

== ENCOUNTER 2023-11-07 06:03 | Emergency (ER) | payer MEDICARE, OTHER, SELFPAY ==
[2023-11-07] VITALS (8 sets, daily range): BP systolic 93–141; BP diastolic 58–74; BMI 22.5
--- NOTE | 2023-11-07 07:11 | ED.GENMED ---
History of Present Illness
General
Chief Complaint: Back Pain
Source: patient
Exam Limitations: none
Time Seen by Provider: 11/07/23 06:57
Nursing documentation reviewed up to this point in time: agreed with
History of Present Illness
History of Present Illness:
73-year-old female past medical history of bipolar anxiety currently on lithium lamotrigine, hypertension hyperlipidemia sick sinus syndrome currently with pacemaker presenting to the emergency department today with concerns of back pain ongoing for
3 days. Also has been treated with an antibiotic that she is unsure of which 1 for UTI. Denies significant ongoing urinary symptoms change in bowel movements fevers chills nausea vomiting chest pain or shortness of breath. Denies numbness or
weakness.
Past History
Past History
ED Past Medical History: HTN and Psychiatric
Review of Systems
Review of Systems
Allergies reviewed?: Yes
All Other Systems: ROS reviewed and negative except as documented in HPI and ROS
Phy Exam
Physical Exam
Physical Exam:
GENERAL: Alert , in no apparent distress
EYE: pupils equal and reactive
NECK: Supple, no significant adenopathy.
ENT: o/p clr, mmm.
CARDIAC: Regular rate and rhythm .
LUNGS: Clear breath sounds bilaterally, no acute respiratory distress, no wheezes/rales/rhonchi
ABDOMEN: Soft, without focal tenderness, no r/g, no cvat
NEUROLOGICAL: Alert and oriented, no focal neuro deficits
SKIN: Warm and dry, skin intact.
MUSCULOSKELETAL: No edema, well perfused.
PSYCH: Normal and appropriate interaction.
Course
Orders/Labs/Results
Orders:
Orders
11/07/23 06:31
Complete Blood Count/With Diff Urgent
Comprehensive Metabolic Panel Urgent
11/07/23 07:05
CT Abd/pel Without Iv Or Oral Urgent
Comment:
Reason For Exam: back pain
11/07/23 09:18
Urinalysis Reflex To Culture Urgent
Date Specimen was Collected: 11/07/23
Time Specimen was Collected: 09:01
Urine Microscopic Reflex Cult Urgent
11/07/23 10:33
Case Management Consult ONCE
Case Management Consult: Discharge Planning
Comment: Homecare, visiting nurse?
Abnormal Lab Results
11/07/23 11/07/23
06:31 09:18
WBC 4.7 L 10^3/uL
(4.8-10.8)
RBC 2.68 L 10^6/uL
(4.20-5.40)
Hgb 9.1 L g/dL
(12.0-16.0)
Hct 27.8 L %
(37.0-47.0)
MCV 103.7 H fL
(81.0-99.0)
MCH 34.0 H pg
(27.0-31.0)
MCHC 32.7 L g/dL
(33.0-37.0)
Absolute Lymphs (auto) 0.6 L 10^3/uL
(1.2-3.4)
Lymphocytes % 11.9 L %
(20.5-51.1)
Monocytes % 12.3 H %
(1.7-9.3)
BUN 24 H mg/dl
(7-17)
Creatinine 1.5 H mg/dL
(0.6-1.0)
Glucose 101 H mg/dl
(70-99)
Calcium 10.7 H mg/dl
(8.4-10.2)
Leukocyte Esterase Rfl Trace A
(Negative)
11/07/23 06:31
11/07/23 06:31
Vital Signs
Initial and Last Documented VS:
Initial Vital Signs
BP
121/64
11/07/23 06:06
Last Documented Vital Signs
Temp Pulse Resp BP Pulse Ox
99.5 F 74 13 129/69 98
11/07/23 06:19 11/07/23 10:30 11/07/23 10:30 11/07/23 10:00 11/07/23 09:45
MDM/Problems Addressed
MDM/Problems Addressed:
73-year-old female presenting to the emergency department with concerns of back pain. Seems to be worse with movement. Recently treated for UTI currently on antibiotics. Denies worsening urinary symptoms denies fevers chest pain shortness of
breath numbness weakness change in bowel function. Urinalysis does not appear to be consistent with infection labs at patient's baseline. CT scan was performed considering her concerns of back pain but did not show any emergent findings consistent
with this did show multiple chronic conditions . These were all discussed with the patient but unlikely be causing acute symptoms considering she has no anterior discomfort. She was advised for bowel regiment otherwise close outpatient follow-up
return precautions given.
*Critical Care Note
Total Time (30-74mins, 75-104mins- exclusive of procedures): Not Applicable
ED Attending Note
-
Portions of this chart may have been created with voice recognition software.� Occasional wrong word or��sound alike� substitutions may have occurred due to the inherent limitations of voice recognition software.
Discharge Plan
Departure
Patient Disposition: Home (Routine Discharge)
Date of Disposition: 11/07/23
Time of Disposition: 11:36
Patient with high blood pressure during this ER visit?: No
Condition: Good
Covid-19: Not Applicable
Discharge Problem:
Back pain
Instructions: Low Back Pain (DC)
Prescriptions:
No Action
citalopram 40 mg Tablet
40 mg PO HS
trazodone 50 mg Tablet
50 mg PO HS
atorvastatin 10 mg Tablet
10 mg PO NOON
lorazepam 0.5 mg Tablet
0.5 mg PO TID
amlodipine 10 mg Tablet
10 mg PO NOON
ferrous sulfate 325 mg (65 mg iron) Tablet
325 mg PO NOON
lurasidone 20 mg Tablet
60 mg PO HS
Patient Comments:
10/12/23: fills 40mg and 20mg tablets, unsure of the strengths/amounts she takes.
aspirin 81 mg Capsule
81 mg PO NOON
lithium carbonate 150 mg Capsule
150 mg PO HS
lamotrigine 25 mg Tablet
25 mg PO HS
Patient Comments:
10/12/23: fills 50mg and 25mg tablets, unsure of the strength/amounts she takes.
loratadine 10 mg Tablet
10 mg PO NOON
losartan 50 mg Tablet
50 mg PO NOON
acetaminophen [Tylenol Ex Str Rapid Release] 500 mg Tablet
1,500 mg PO DAILYPRN PRN (Reason: mild pain)
aripiprazole 2 mg Tablet
2 mg PO HS
Visbiome 112.5 billion cell Capsule
1 cap PO NOON
lidocaine 5 % adhesive patch,medicated
1 patch topical DAILY Qty: 15 0RF
Referrals:
PRIVATE,PHYSICIAN [Family Provider] -
Activity Restrictions/Additional Instructions:
You came to the emergency department today with concerns of back discomfort. No evidence of urinary tract infection there were multiple incidental findings on your CT scan include a large hiatal hernia and constipation as well as degenerative back
disease. Please follow closely as an outpatient with your primary care doctor within 1 to 2 weeks for reassessment and monitoring of these. Return to the emergency department any worsening, new or concerning symptoms.
Interventions
Interventions:
*Risk Screen - Suicide Last Done: 11/07/23 06:19
*General Assessment Last Done: 11/07/23 06:19
*Neglect/Abuse Screening Last Done: 11/07/23 06:19
ED- Fall Risk Assessment Last Done: 11/07/23 06:26
*ED COVID-19 Vaccine History Last Done: 11/07/23 06:24
ED-Musculoskeletal Assessment Last Done: 11/07/23 08:08
Discharge Date and Time
Print Language: ARMENIAN
[2023-11-07 08:22] LABS: % Basophils 0.4 % (0-2); % Immature Granulocytes 0.4 % (0-0.5); % Lymphocytes 11.9 % (20.5-51.1); % Monocytes 12.3 % (1.7-9.3); Absolute Eosinophils 0.2 10^3/uL (0-0.7); Absolute Lymphocytes 0.6 10^3/uL (1.2-3.4); Absolute Monocytes 0.6 10^3/uL (0.1-0.6); Absolute Neutrophils 3.3 10^3/uL (1.4-6.5); Hematocrit 27.8 % (37.0-47.0); Hemoglobin 9.1 g/dL (12.0-16.0); Mean Corp Hgb Conc. 32.7 g/dL (33.0-37.0); Mean Corpuscular Volume 103.7 fL (81.0-99.0); Mean Platelet Volume 9.6 fL (7.4-10.4); Nucleated Red Blood Cells % 0 %; Platelet Count 180 10^3/uL (130-400); Red Blood Cell Count 2.68 10^6/uL (4.20-5.40); Red Cell Dist. Width 13.1 % (11.5-14.5); White Blood Cell Count 4.7 10^3/uL (4.8-10.8)
[2023-11-07 08:26] LABS: ALT (SGPT) 23 U/L (0-35); AST (SGOT) 32 U/L (14-36); Albumin 3.9 g/dl (3.5-5.0); Alkaline Phosphatase 106 U/L (38-126); Blood Urea Nitrogen 24 mg/dl (7-17); Calcium 10.7 mg/dl (8.4-10.2); Carbon Dioxide 23 mmol/L (22-30); Chloride 105 mmol/L (98-107); Estimated Creatinine Clearance 26 ml/min; Glucose 101 mg/dl (70-99); Potassium 4.1 mmol/L (3.5-5.1); Sodium 136 mmol/L (135-145); Total Bilirubin 0.3 mg/dl (0.2-1.3); Total Protein 6.3 g/dl (6.3-8.2); eGFR 36.12
[2023-11-07 09:28] LABS: Urine Albumin Negative (Neg - Trace); Urine Bilirubin Negative (Negative); Urine Character Clear (Clear); Urine Color Straw; Urine Glucose Negative (Negative); Urine Ketone Negative (Negative); Urine Leukocyte Trace (Negative); Urine Nitrite Negative (Negative); Urine Occult Blood Negative (Negative); Urine Specific Gravity 1.005 (<1.030); Urine Urobilinogen Negative (Neg - 1+); Urine pH 6.5 (5.0-9.0)
[2023-11-07 09:46] LABS: Urine Red Blood Cell 0-2 /HPF (0-2); Urine Urothelial Cell 0-2 /LPF (FEW); Urine White Cell 0-2 /HPF (0-5)
--- NOTE | 2023-11-07 11:36 | CM ---
Reviewed chart. CM consult placed for VN services. CM introduced self and role. Spoke with patient at bedside. Patient stated she is [facility] with [facility] CM spoke with in-house liaison and shared patient stated she is current with them. CM asked to
have INFORMATION SYSTEMS PLANNER added to services. Patient asked if there were any other resources available. CM stated that there are private caregivers, but they would have to be paid out of pocket. Patient declined. CM suggested an [facility] on Aging referral be placed.
Patient agreed and verbalized understanding that they would most likely be calling and she would have to follow up.
Bedside RN and PA-C made aware of above.
== END 2023-11-07 12:07 | disposition home or self-care (01) ==
LOC: EMR 06:03
PROVIDERS: Physician Assistant; EMERGENCY PHYSICIAN Emergency Medicine
DX: M54.9 Dorsalgia, unspecified (principal); N39.0 Urinary tract infection, site not specified; F31.9 Bipolar disorder, unspecified; F41.9 Anxiety disorder, unspecified; E78.5 Hyperlipidemia, unspecified; I49.5 Sick sinus syndrome; K58.9 Irritable bowel syndrome, unspecified; K57.92 Diverticulitis of intestine, part unspecified, without perforation or abscess without bleeding; I12.9 Hypertensive chronic kidney disease with stage 1 through stage 4 chronic kidney disease, or unspecified chronic kidney disease; N18.30 Chronic kidney disease, stage 3 unspecified; M81.0 Age-related osteoporosis without current pathological fracture; D64.9 Anemia, unspecified; Z95.0 Presence of cardiac pacemaker; Z79.899 Other long term (current) drug therapy; Z79.82 Long term (current) use of aspirin; Z86.718 Personal history of other venous thrombosis and embolism
CPT/HCPCS: 99284; 74176; 80053; 81003; 81015; 85025

== ENCOUNTER → 2023-11-15 11:54 | Outpatient (REF) | payer MEDICARE, OTHER, SELFPAY ==
[2023-11-15 12:49] LABS: % Basophils 0.5 % (0-2); % Eosinophils 2.4 % (0-6); % Immature Granulocytes 0.4 % (0-0.5); % Lymphocytes 15.3 % (20.5-51.1); % Monocytes 7.4 % (1.7-9.3); Absolute Eosinophils 0.2 10^3/uL (0-0.7); Absolute Lymphocytes 1.3 10^3/uL (1.2-3.4); Absolute Monocytes 0.6 10^3/uL (0.1-0.6); Absolute Neutrophils 6.2 10^3/uL (1.4-6.5); Hematocrit 29.5 % (37.0-47.0); Hemoglobin 9.4 g/dL (12.0-16.0); Mean Corp Hgb Conc. 31.9 g/dL (33.0-37.0); Mean Corpuscular Hgb 33.7 pg (27.0-31.0); Mean Corpuscular Volume 105.7 fL (81.0-99.0); Mean Platelet Volume 9.3 fL (7.4-10.4); Nucleated Red Blood Cells % 0 %; Platelet Count 253 10^3/uL (130-400); Red Blood Cell Count 2.79 10^6/uL (4.20-5.40); Red Cell Dist. Width 13.1 % (11.5-14.5); White Blood Cell Count 8.3 10^3/uL (4.8-10.8)
[2023-11-15 13:31] LABS: Iron 66 ug/dl (37-170)
== END ==
LOC: REG 11:54
PROVIDERS: ATTENDING PHYSICIAN Nurse Practitioner Family
DX: D50.9 Iron deficiency anemia, unspecified (principal)
CPT/HCPCS: 36415; 83540; 85025

== ENCOUNTER → 2023-12-03 15:53 | Outpatient (REF) | payer MEDICARE, OTHER, SELFPAY ==
[2023-12-03 16:52] LABS: Urine Albumin Negative (Neg - Trace); Urine Bilirubin Negative (Negative); Urine Character Clear (Clear); Urine Color Straw; Urine Glucose Negative (Negative); Urine Ketone Negative (Negative); Urine Leukocyte 1+ (Negative); Urine Nitrite Positive (Negative); Urine Occult Blood Negative (Negative); Urine Urobilinogen Negative (Neg - 1+)
[2023-12-03 17:16] LABS: Urine Red Blood Cell 0-2 /HPF (0-2); Urine Squamous Cell 0-2 /LPF (Few); Urine White Cell 21-25 /HPF (0-5)
[2023-12-03 17:17] LABS: Urine Bacteria Many (Negative)
== END ==
LOC: REG 15:53
PROVIDERS: ATTENDING PHYSICIAN Nurse Practitioner Family
DX: R29.6 Repeated falls (principal); D50.8 Other iron deficiency anemias; R35.0 Frequency of micturition
CPT/HCPCS: 81003; 81015; 87077; 87086; 87186

== ENCOUNTER → 2023-12-12 14:12 | Outpatient (REF) | payer MEDICARE, OTHER, SELFPAY | LOC: WDC 14:12 | PROVIDERS: ATTENDING PHYSICIAN Nurse Practitioner Family | DX: Z12.31 Encounter for screening mammogram for malignant neoplasm of breast (principal) | CPT/HCPCS: 77063; 77067 ==

== ENCOUNTER → 2023-12-14 15:05 | Outpatient (REF) | payer MEDICARE, OTHER, SELFPAY ==
[2023-12-14 16:22] LABS: Urine Albumin Negative (Neg - Trace); Urine Bilirubin Negative (Negative); Urine Character Clear (Clear); Urine Color Yellow; Urine Glucose Negative (Negative); Urine Ketone Negative (Negative); Urine Leukocyte Negative (Negative); Urine Nitrite Negative (Negative); Urine Occult Blood Negative (Negative); Urine Urobilinogen Negative (Neg - 1+)
== END ==
LOC: REG 15:05
PROVIDERS: ATTENDING PHYSICIAN Nurse Practitioner Family
DX: R35.0 Frequency of micturition (principal)
CPT/HCPCS: 81003

== ENCOUNTER 2023-12-25 06:03 | Inpatient (IN) | payer MEDICARE, OTHER, SELFPAY ==
[2023-12-03 14:06] VITALS: BMI 23.0
[2023-12-03 14:52] LABS: % Basophils 0.3 % (0-2); % Eosinophils 2.2 % (0-6); % Immature Granulocytes 0.3 % (0-0.5); % Lymphocytes 19.3 % (20.5-51.1); % Monocytes 7.6 % (1.7-9.3); % Neutrophils 70.3 % (42.2-75.2); Absolute Eosinophils 0.1 10^3/uL (0-0.7); Absolute Lymphocytes 1.1 10^3/uL (1.2-3.4); Absolute Monocytes 0.5 10^3/uL (0.1-0.6); Absolute Neutrophils 4.2 10^3/uL (1.4-6.5); Hematocrit 28.4 % (37.0-47.0); Hemoglobin 9.2 g/dL (12.0-16.0); Mean Corp Hgb Conc. 32.4 g/dL (33.0-37.0); Mean Corpuscular Hgb 32.5 pg (27.0-31.0); Mean Corpuscular Volume 100.4 fL (81.0-99.0); Mean Platelet Volume 9.4 fL (7.4-10.4); Nucleated Red Blood Cells % 0 %; Platelet Count 199 10^3/uL (130-400); Red Blood Cell Count 2.83 10^6/uL (4.20-5.40); Red Cell Dist. Width 13.5 % (11.5-14.5); White Blood Cell Count 5.9 10^3/uL (4.8-10.8)
[2023-12-03 15:26] LABS: ALT (SGPT) 27 U/L (0-35); AST (SGOT) 34 U/L (14-36); Albumin 4.2 g/dl (3.5-5.0); Alkaline Phosphatase 99 U/L (38-126); Blood Urea Nitrogen 24 mg/dl (7-17); Calcium 11.2 mg/dl (8.4-10.2); Carbon Dioxide 19 mmol/L (22-30); Chloride 108 mmol/L (98-107); Estimated Creatinine Clearance 25 ml/min; Glucose 114 mg/dl (70-99); Iron 109 ug/dl (37-170); Potassium 4.5 mmol/L (3.5-5.1); Sodium 141 mmol/L (135-145); Total Bilirubin 0.3 mg/dl (0.2-1.3); Total Protein 6.7 g/dl (6.3-8.2); eGFR 39.23
[2023-12-03 15:36] LABS: Percent Saturation 30 % (20-50); Total Iron Binding Capacity 354 ug/dl (265-497)
[2023-12-03 16:01] LABS: Ferritin 52.7 ng/ml (11.1-264.0)
[2023-12-04 09:14] LABS: Glycohemoglobin (HgbA1c) 5.4 % (4.0-5.6)
--- NOTE | 2023-12-19 09:49 | PTCARENOTE ---
Sandy in Dr. Gordon's office made aware of Hgb 9.2 from 12/03/23.
[2023-12-25] VITALS (22 sets, daily range): BP systolic 87–147; BP diastolic 50–76; BMI 23.0
[2023-12-25] MEDS: TYLENOL 1000 MG PO (06:42)
[2023-12-25] MEDS: CELEBREX 200 MG PO (06:42)
[2023-12-25] MEDS: NORMOSOL-R/PLASMALYTE-A 1000 IV (06:55)
--- NOTE | 2023-12-25 12:43 | W.PN.ORTHO ---
Today's Communication / Plan
-
D/c when clinically stable.
Assessment
.
Distal Motor Intact: Yes
Dressing:
Clean, dry and intact.
Assessment:
L shoulder OA s/p L Reverse ANDREAS w/ Dr Gordon 12/25/23
DVT prophylaxis - ASA, b/l venous foot pumps
HTN - + parameters - monitor BP
Bifascicular block and SSS s/p PPM - monitor on tele
CKD stage 3b - minimize nephrotoxins
IBS w/ chronic constipation - daily Miralax w/ Colace and Senna
Iron def anemia - continue oral iron - H&H in AM
E. Coli UTI 12/03/23 - tx w/ Augmentin pre-op - UA WNL 12/14/23
Ambulatory dysfunction - fall precautions
HLD
Chronic peripheral edema
Hiatal hernia
H/o diverticulitis
Multilevel DDD
Hyperparathyroidism
Bipolar disorder
Osteoporosis
Plan
.
Surgery / Date: L Reverse ANDREAS w/ Dr Gordon 12/25/23
DVT Prophylaxis: Aspirin
Activity:
Out of bed.
PT/OT
Discharge Plan: Home
Subjective
.
.:
Patient resting comfortably in PACU.
L shoulder pain minimal and well tolerated.
Denies any new significant complaints.
Vital Signs and Labs
.
Vital Signs and Labs:
Lab Results
12/03/23 14:02
12/03/23 14:02
Temp Pulse Resp BP Pulse Ox
97.5 F 62 19 107/60 94
12/25/23 09:50 12/25/23 12:31 12/25/23 12:31 12/25/23 12:31 12/25/23 12:31
Physical Exam
-
HEENT: No pallor, cyanosis, or jaundice. Throat clear.
NECK: Supple. No JVD.
RESPIRATORY: Lungs clear to auscultation.
CVS: S1, S2 normal. RRR.�
ABDOMEN: Soft, non-tender. No distension.
EXTREMITIES: + LUE sling. Strength equal, no calf pain with palpation/dorsiflexion. Calves soft.
NUMERICAL TOOL PROGRAMMER: AOx3. No focal deficits. operators school manager grossly intact
[2023-12-25] MEDS: NSS 1000 IV (14:27)
--- NOTE | 2023-12-25 15:00 | PTCARENOTE ---
1350: Patient arrived to 2S. Full head to toe assessment completed. LUE neurovascular assessment completed. L shoulder primaseal clean dry and intact. Brace on L arm. IVF running per order. Patient on RA with SpO2 greater than 92%. Call naidu within
reach and bed in lowest position/
[2023-12-25] MEDS: ANCEF 5 IV ×2 (15:54→23:28)
[2023-12-25] MEDS: ASPIRIN 325 MG PO (17:04)
[2023-12-25] MEDS: MAALOX 30 ML PO ×2 (18:13→22:21)
[2023-12-25] MEDS: COLACE 100 MG PO (20:18)
[2023-12-25] MEDS: BACTROBAN 2% OINTMENT 1 APPLIC NASAL (20:18)
[2023-12-25] MEDS: SENOKOT 17.2 MG PO (20:18)
[2023-12-25] MEDS: DECADRON 4 MG PO (20:19)
[2023-12-25] MEDS: ARICEPT 5 MG PO (21:37)
[2023-12-25] MEDS: ABILIFY 5 MG PO (21:37)
[2023-12-25] MEDS: LAMICTAL 100 MG PO (21:37)
[2023-12-25] MEDS: CELEXA 40 MG PO (21:37)
[2023-12-25] MEDS: ESKALITH 150 MG PO (21:38)
[2023-12-25] MEDS: DESYREL 50 MG PO (21:38)
[2023-12-25] MEDS: TYLENOL #3 PO (23:50)
[2023-12-25] MEDS: TYLENOL #3 2 TABLET PO (23:56)
[2023-12-26 03:30] VITALS: BP 132/67
[2023-12-26 06:03] LABS: Hematocrit 25.2 % (37.0-47.0); Hemoglobin 8.2 g/dL (12.0-16.0)
[2023-12-26] MEDS: TYLENOL #3 2 TABLET PO (06:11)
[2023-12-26] MEDS: TYLENOL #3 PO (06:11)
[2023-12-26] MEDS: MAALOX 30 ML PO ×2 (06:11→18:01)
--- NOTE | 2023-12-26 07:11 | PTCARENOTE ---
Post pain assessment for Tylenol #3 2 tablet dose given by fast food shift supervisor KANDIS Downey, was documented on wrong MAR cell. Post pain assessment reentered on correct Tylenol #3 MAR cell for KANDIS Medina who had completed the post pain assessment on
12/26/23 at 0711.
[2023-12-26 07:20] VITALS: BP 123/66
[2023-12-26] MEDS: NORVASC PO (08:20)
[2023-12-26] MEDS: COZAAR PO (08:20)
[2023-12-26] MEDS: ASPIRIN 325 MG PO (08:21)
[2023-12-26] MEDS: MIRALAX 17 GRAMS PO (08:21)
[2023-12-26] MEDS: CLARITIN 10 MG PO (08:21)
[2023-12-26] MEDS: COLACE 100 MG PO ×2 (08:21→20:36)
[2023-12-26] MEDS: DECADRON 4 MG PO ×2 (08:21→20:37)
[2023-12-26] MEDS: FEOSOL 325 MG PO (08:21)
[2023-12-26] MEDS: SENOKOT 17.2 MG PO ×2 (08:21→20:38)
[2023-12-26] MEDS: LIPITOR 10 MG PO (08:22)
[2023-12-26] MEDS: BACTROBAN 2% OINTMENT 1 APPLIC NASAL ×2 (08:22→20:36)
[2023-12-26 09:57] VITALS: BP 128/75; BP 146/75; PULSE 67; O2SAT 92
--- NOTE | 2023-12-26 10:30 | CM ---
Addendum entered by Charisse Zhou 12/26/23 14:16:
Spoke with pts gordon Theodore. Updated on discharge plan. Agreed with discharge plan
Requesting updates when SNF bed obtained
Plan - anticipate SNF when medically ready and bed obtained
Original Note:
Met with pt at bedside
Pt reports she lives alone in an apartment at [facility]
Independent at baseline, ambulates with rollator, does own shopping, cleaning, cooking
DME - rollator, canes x2
SNF - [facility] in past
HH - [facility] in past
Has ride at discharge
PCP - Korin Gaines
Pharm - [facility]
PT/OT recs SNF at discharge
Discussed with pt - requesting [facility]
Will send referrals in Care Port
Plan - anticipate SNF when medically ready and bed obtained
[2023-12-26 11:15] VITALS: BP 138/68
--- NOTE | 2023-12-26 11:25 | W.PN.ORTHO ---
Today's Communication / Plan
-
PT/OT recommending SNF.
D/c when clinically stable, SNF bed available.
Assessment
.
Distal Motor Intact: Yes
Dressing:
Clean, dry and intact.
Assessment:
L shoulder OA s/p L Reverse TSA w/ Dr Gordon 12/25/23
DVT prophylaxis - ASA, b/l venous foot pumps
HTN - + parameters - monitor BP
Bifascicular block and SSS s/p PPM - monitor on tele
CKD stage 3b - minimize nephrotoxins
IBS w/ chronic constipation - daily Miralax w/ Colace and Senna
Iron def anemia - continue oral iron - H&H 9.2 pre-op -> 8.2 post-op
- Asymptomatic, hemodynamically stable
- Continue to monitor
E. Coli UTI 12/03/23 - tx w/ Augmentin pre-op - UA WNL 12/14/23
Ambulatory dysfunction - fall precautions
HLD
Chronic peripheral edema
Hiatal hernia
H/o diverticulitis
Multilevel DDD
Hyperparathyroidism
Urinary incontinence
Bipolar disorder
Osteoporosis
Plan
.
Surgery / Date: L Reverse TSA w/ Dr Gordon 12/25/23
DVT Prophylaxis: Aspirin
Activity:
Out of bed.
PT/OT
Discharge Plan: SNF
Subjective
.
.:
Patient resting comfortably in her chair.
L shoulder pain currently well tolerated.
Reported gas pains overnight - relief provided w/ Maalox prn.
Vital Signs and Labs
.
Vital Signs and Labs:
Lab Results
12/26/23 04:55
12/03/23 14:02
Temp Pulse Resp BP Pulse Ox
98.1 F 62 18 138/68 98
12/26/23 11:15 12/26/23 11:15 12/26/23 11:15 12/26/23 11:15 12/26/23 11:15
Physical Exam
-
HEENT: No pallor, cyanosis, or jaundice. Throat clear.
NECK: Supple. No JVD.
RESPIRATORY: Lungs clear to auscultation.
CVS: S1, S2 normal. RRR.�+PPM.
ABDOMEN: Soft, non-tender. No distension.
EXTREMITIES: + LUE sling. Able to wiggle fingers/breakfast bar attendant b/l. Good radial pulses b/l. Strength equal, no calf pain with palpation/dorsiflexion. Calves soft.
SHOP TECH: AOx3. No focal deficits. invoice machine operator grossly intact
[2023-12-26 11:59] VITALS: BMI 23.0
[2023-12-26 15:15] VITALS: BP 122/59
[2023-12-26] MEDS: TYLENOL 650 MG PO (20:39)
[2023-12-26] MEDS: ABILIFY 5 MG PO (21:38)
[2023-12-26] MEDS: CELEXA 40 MG PO (21:38)
[2023-12-26] MEDS: ESKALITH 150 MG PO (21:38)
[2023-12-26] MEDS: ARICEPT 5 MG PO (21:38)
[2023-12-26] MEDS: DESYREL 50 MG PO (21:38)
[2023-12-26] MEDS: LAMICTAL 100 MG PO (21:39)
[2023-12-26 23:35] VITALS: BP 150/69
[2023-12-27] VITALS (8 sets, daily range): BP systolic 115–174; BP diastolic 60–88; PULSE 61–72; O2SAT 95
[2023-12-27] MEDS: MIRALAX 17 GRAMS PO (08:42)
[2023-12-27] MEDS: CLARITIN 10 MG PO (08:42)
[2023-12-27] MEDS: FEOSOL 325 MG PO (08:43)
[2023-12-27] MEDS: ASPIRIN 325 MG PO (08:43)
[2023-12-27] MEDS: LIPITOR 10 MG PO (08:43)
[2023-12-27] MEDS: NORVASC 10 MG PO (08:43)
[2023-12-27] MEDS: DECADRON 4 MG PO ×2 (08:43→20:15)
[2023-12-27] MEDS: COLACE 100 MG PO (08:43)
[2023-12-27] MEDS: COZAAR 50 MG PO (08:43)
[2023-12-27] MEDS: SENOKOT 17.2 MG PO (08:43)
[2023-12-27] MEDS: TYLENOL 650 MG PO ×3 (08:44→17:11)
[2023-12-27] MEDS: MYLICON 80 MG PO (10:14)
[2023-12-27] MEDS: LIDOCAINE 4% PATCH 2 PATCH TOPICAL (10:15)
--- NOTE | 2023-12-27 11:24 | W.PN.ORTHO ---
Today's Communication / Plan
-
Continue to work w/ PT and OT.
D/c when SNF bed available.
Assessment
.
Distal Motor Intact: Yes
Dressing:
Clean, dry and intact.
Assessment:
L shoulder OA s/p L Reverse ANDREAS w/ Dr Gordon 12/25/23
DVT prophylaxis - ASA, b/l venous foot pumps
Intermittent gas pain - continue Maalox and Simethicone prn
Chronic low back pain - standing order Tylenol w/ Tylenol #3 for mod-severe pain prn
- Add Lidoderm patches
- Continue steroid until POD 3
HTN - + parameters - monitor BP
Bifascicular block and SSS s/p PPM - monitor on tele
CKD stage 3b - minimize nephrotoxins
IBS w/ chronic constipation - daily Miralax w/ Colace and Senna
Iron def anemia - continue oral iron - H&H 9.2 pre-op -> 8.2 post-op
- Asymptomatic, hemodynamically stable
E. Coli UTI 12/03/23 - tx w/ Augmentin pre-op - UA WNL 12/14/23
Ambulatory dysfunction and balance issues w/ h/o falls - fall precautions
HLD
Chronic peripheral edema
Hiatal hernia
H/o diverticulitis
Multilevel DDD
Hyperparathyroidism
Urinary incontinence
Bipolar disorder
Osteoporosis
Plan
.
Surgery / Date: L Reverse ANDREAS w/ Dr Gordon 12/25/23
DVT Prophylaxis: Aspirin
Activity:
Out of bed.
PT/OT
Discharge Plan: SNF
Subjective
.
.:
Patient examined resting in her chair.
L shoulder pain minimal; chronic low back pain reported.
Intermittent gas pain described - Simethicone ordered.
Vital Signs and Labs
.
Vital Signs and Labs:
Lab Results
12/26/23 04:55
09/09/24 14:02
Temp Pulse Resp BP Pulse Ox
98.0 F 73 18 156/77 93
12/27/23 07:20 12/27/23 07:20 12/27/23 07:20 12/27/23 08:43 12/27/23 08:00
Physical Exam
-
HEENT: No pallor, cyanosis, or jaundice. Throat clear.
NECK: Supple. No JVD.
RESPIRATORY: Lungs clear to auscultation.
CVS: S1, S2 normal. RRR.�
ABDOMEN: Soft, non-tender. No distension.
EXTREMITIES: + LUE sling. Able to wiggle fingers b/l. Good optical mechanic apprentice/radial pulses b/l. Strength equal, no calf pain with palpation/dorsiflexion. Calves soft.
TITLE AGENT: AOx3. No focal deficits. millroom supervisor grossly intact
--- NOTE | 2023-12-27 16:42 | CM ---
Patient is sp left reverse TSA pod#2,tylenol #3 for severe pain,monitoring bp.patient has been accepted at [facility].called husesin at [facility] for bed availability and she will let cm know tomorrow.Plan;dc to snf when bed available.
[2023-12-27] MEDS: COLACE PO (20:15)
[2023-12-27] MEDS: SENOKOT PO (20:15)
[2023-12-27] MEDS: ABILIFY 5 MG PO (22:20)
[2023-12-27] MEDS: ARICEPT 5 MG PO (22:20)
[2023-12-27] MEDS: DESYREL 50 MG PO (22:21)
[2023-12-27] MEDS: ESKALITH 150 MG PO (22:21)
[2023-12-27] MEDS: LAMICTAL 100 MG PO (22:21)
[2023-12-27] MEDS: CELEXA 40 MG PO (22:21)
[2023-12-28] MEDS: TYLENOL 650 MG PO (01:31)
[2023-12-28 07:21] VITALS: BP 157/82
[2023-12-28] MEDS: ATIVAN 0.5 MG PO (08:29)
[2023-12-28] MEDS: ASPIRIN 325 MG PO (08:29)
[2023-12-28] MEDS: COLACE PO (08:29)
[2023-12-28] MEDS: COZAAR 50 MG PO (08:29)
[2023-12-28] MEDS: LIPITOR 10 MG PO (08:30)
[2023-12-28] MEDS: FEOSOL 325 MG PO (08:30)
[2023-12-28] MEDS: MIRALAX PO (08:31)
[2023-12-28] MEDS: LIDOCAINE 4% PATCH 2 PATCH TOPICAL (08:31)
[2023-12-28] MEDS: NORVASC 10 MG PO (08:31)
[2023-12-28] MEDS: TYLENOL #3 1 TABLET PO ×2 (08:33→14:42)
[2023-12-28] MEDS: TYLENOL PO (08:34)
[2023-12-28] MEDS: DECADRON 4 MG PO (08:34)
[2023-12-28] MEDS: CLARITIN 10 MG PO (08:38)
[2023-12-28] MEDS: SENOKOT PO (08:43)
--- NOTE | 2023-12-28 09:31 | W.PN.ORTHO ---
Addendum entered and electronically signed by Marcy Pacheco PA-C 12/31/23 14:31:
Late entry: The patient's sister, Salma Saleh, voiced concerns re: María Elena's overall mental state during her admission. Salma Saleh had asked the nightshift RN on 12/25 if a psych consult could be placed. This information was not provided to me until I
spoke with the patient's sister personally on 12/26. It sounded as though Salma Saleh was upset by this. I told Salma Saleh that I would contact Odalys Wall, clinical medical and health services manager for [address] [place] [address], re: our conversation. Odalys was messaged about Salma Saleh's
concerns shortly after my phone call ended. I had also told Salma Saleh at that point that I felt a psych consult was not indicated. María Elena has a known h/o bipolar disorder for which she takes several medications. She is currently being titrated off
[place] per her routine psychiatrist, Dr. Vega, d/t CKD. Throughout her admission, she was noted to be functioning appropriately and at her baseline. Her mental state did not affect her ability to work with therapy. She was receptive to their
instructions. She appeared to be no harm to herself or others. I spoke to several RNs (Dee Suárez in particular), OT (Lindsey) and PT (Meenakshi) who voiced no concerns re: the patient and her mental state. She was discharged on 12/27 to [facility] as she
was medically stable.
Original Note:
Today's Communication / Plan
-
D/c today if SNF bed available.
Assessment
.
Distal Motor Intact: Yes
Dressing:
Clean, dry and intact.
Assessment:
L shoulder OA s/p L Reverse TSA w/ Dr Gordon 12/25/23
DVT prophylaxis - ASA, b/l venous foot pumps
Intermittent gas pain - continue Maalox and Simethicone prn - improved by today
Chronic low back pain - standing order Tylenol w/ Tylenol #3 for mod-severe pain prn
- Add Lidoderm patches
- Continue steroid until POD 3
- Discussed w/ PT
HTN - + parameters - BPs stable
Bifascicular block and SSS s/p PPM - rhythm stable on tele
CKD stage 3b - continue to minimize nephrotoxins
IBS w/ chronic constipation - daily Miralax w/ Colace
- Senna switched from BID to BIDPRN after BM 12/26
Iron def anemia - continue oral iron - H&H 9.2 pre-op -> 8.2 post-op
- Asymptomatic, hemodynamically stable
E. Coli UTI 12/03/23 - tx w/ Augmentin pre-op - UA WNL 12/14/23
Ambulatory dysfunction and balance issues w/ h/o falls - fall precautions
Bipolar disorder - continue current psych meds as Rx by her outpatient psychiatrist
- Pt's sister, Salma Saleh, did voice concerns re: her bipolar d/o over the phone. Pt has been functioning appropriately and at baseline. No hindrance w/ therapy reported. No visible interference w/ her surgical healing.
HLD
Chronic peripheral edema
Hiatal hernia
H/o diverticulitis
Multilevel DDD
Hyperparathyroidism
Urinary incontinence
Osteoporosis
Plan
.
Surgery / Date: L Reverse TSA w/ Dr Gordon 12/25/23
DVT Prophylaxis: Aspirin
Activity:
Out of bed.
PT/OT
Discharge Plan: SNF
Subjective
.
.:
Patient examined resting in her chair this AM.
L shoulder pain minimal; low back pain improving w/ Lidocaine patches and warm blankets.
Denies any new significant complaints today.
Eager for potential d/c to SNF today.
Vital Signs and Labs
.
Vital Signs and Labs:
Lab Results
12/26/23 04:55
12/03/23 14:02
Temp Pulse Resp BP Pulse Ox
98.7 F 64 14 157/82 95
12/28/23 07:21 12/28/23 08:29 12/28/23 07:21 12/28/23 08:29 12/28/23 07:21
Physical Exam
-
HEENT: No pallor, cyanosis, or jaundice. Throat clear.
NECK: Supple. No JVD.
RESPIRATORY: Lungs clear to auscultation.
CVS: S1, S2 normal. RRR.�
ABDOMEN: Soft, non-tender. No distension.
EXTREMITIES: +LUE sling. Able to wiggle fingers b/l. Good torch burner, radial pulses b/l. Strength equal, no calf pain with palpation/dorsiflexion. Calves soft.
RN ONCOLOGY: AOx3. No focal deficits. police reserves commander grossly intact
--- NOTE | 2023-12-28 10:18 | W.DS.TRANS ---
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
-
Discharge Instructions:
Sleep Apnea Risk Low
Discharge Diagnosis/Procedures L shoulder OA s/p L Reverse TSA w/ Dr Gordon
24
Diet Regular
Activity As tolerated
Additional Activity Non-weightbearing left upper extremity.
Driving Restrictions Not until seen by your Dr
Bathing Restrictions OK to Shower
Other Services PT,OT
Instructions:
Stand-Alone Forms: Total Shoulder Replacement D/C
Changes to Home Medications: Yes
Discharge Medications:
DC Medications w/original date entered in [facility]
atorvastatin 10 mg tablet 10 mg PO DAILY High Cholesterol 12/06/22
citalopram 40 mg tablet 40 mg PO HS Mental Health/Anxiety 12/06/22
ferrous sulfate 325 mg (65 mg iron) tablet 325 mg PO DAILY Supplement 12/06/22
lorazepam 0.5 mg tablet 0.5 mg PO TID PRN anxiety 12/06/22
trazodone 50 mg tablet 50 mg PO HS Sleep 12/06/22
lamotrigine 25 mg tablet 100 mg PO HS Mental Health/Anxiety 05/04/23
lithium carbonate 150 mg capsule 150 mg PO HS Mental Health/Anxiety 05/04/23
loratadine 10 mg tablet 10 mg PO DAILY Allergies 05/04/23
Lactobac no.2-Bifidobac no.1-S. thermo 112.5 billion cell capsule (Visbiome) 1 cap PO DAILY Gastrointestinal Issue 10/12/23
aripiprazole 2 mg tablet 5 mg PO HS Mental Health/Anxiety 10/12/23
donepezil 5 mg tablet 5 mg PO HS Mental Health/Anxiety 12/20/23
psyllium 1 packet PO DAILY Constipation 12/20/23
acetaminophen 300 mg-codeine 30 mg tablet 1 - 2 tab PO Q6H PRN moderate-severe pain #20 tabs 12/28/23
acetaminophen 325 mg tablet 650 mg (2 x 325 mg) PO Q6H PRN mild pain #30 tabs 12/28/23
amlodipine 10 mg tablet 10 mg PO DAILY Blood Pressure #1 tab 12/28/23
aspirin 325 mg tablet 325 mg PO DAILY #30 tabs 12/28/23
docusate sodium 100 mg capsule 100 mg PO BID #30 caps 12/28/23
lidocaine 4 % topical patch 2 patch topical DAILY #30 ea 12/28/23
losartan 50 mg tablet 50 mg PO DAILY Blood Pressure #0 tabs 12/28/23
ondansetron HCl 4 mg tablet 4 mg PO Q6H PRN nausea and vomiting #30 tabs 12/28/23
polyethylene glycol 3350 17 gram oral powder packet (HealthyLax) 17 g PO DAILY #14 ea 12/28/23
sennosides 8.6 mg tablet (senna) 17.2 mg (2 x 8.6 mg) PO BID PRN Constipation #30 tabs 12/28/23
simethicone 80 mg chewable tablet 80 mg PO TIDPRN PRN gas pains #10 tabs 12/28/23
Home Medication Changes
acetaminophen 300 mg-codeine 30 mg tablet 1 - 2 tab PO Q6H PRN moderate-severe pain #20 tabs 12/28/23
acetaminophen 325 mg tablet 650 mg (2 x 325 mg) PO Q6H PRN mild pain #30 tabs 12/28/23
aspirin 325 mg tablet 325 mg PO DAILY #30 tabs 12/28/23
docusate sodium 100 mg capsule 100 mg PO BID #30 caps 12/28/23
lidocaine 4 % topical patch 2 patch topical DAILY #30 ea 12/28/23
ondansetron HCl 4 mg tablet 4 mg PO Q6H PRN nausea and vomiting #30 tabs 12/28/23
sennosides 8.6 mg tablet (senna) 17.2 mg (2 x 8.6 mg) PO BID PRN Constipation #30 tabs 12/28/23
Pending Results: No
--- NOTE | 2023-12-28 10:37 | CM ---
Md indicated pt ready for dc.
Spoke with Amee at [facility] bed ready.
Spoke with Ewelina leyva [phone] pt to [employer] .
IMM reviewed with Ewelina copy emailed to [email or web address]. She agrees with dc today to [facility].
[facility]
report [phone]
fax [phone]
PLAN To [facility]
[2023-12-28 15:28] VITALS: BP 158/95
--- NOTE | 2023-12-28 16:05 | PTCARENOTE ---
pt discharged to [facility]. report given to Raquel at [facility]. copy of chart, continuum of care and prescriptions sent with pt. transportation provided by pt's Ewelina leyva.
== END 2023-12-28 16:15 | DRG 483 ==
LOC: 2 SOUTH 06:03
PROVIDERS: Physician Assistant; ADMITTING PHYSICIAN Orthopaedic Surgery; FAMILY PHYSICIAN Nurse Practitioner Family; REFERRING PHYSICIAN Internal Medicine Cardiovascular Disease
PROC: 0RRK00Z Replacement of Left Shoulder Joint with Reverse Ball and Socket Synthetic Substitute, Open Approach (ICD-10-PCS; 2023-12-25)
DX: M19.012 Primary osteoarthritis, left shoulder (principal); I45.2 Bifascicular block; D50.9 Iron deficiency anemia, unspecified; F31.9 Bipolar disorder, unspecified; I12.9 Hypertensive chronic kidney disease with stage 1 through stage 4 chronic kidney disease, or unspecified chronic kidney disease; N18.32 Chronic kidney disease, stage 3b; I49.5 Sick sinus syndrome; M25.712 Osteophyte, left shoulder; G89.29 Other chronic pain; M54.50 Low back pain, unspecified; K58.1 Irritable bowel syndrome with constipation; E21.3 Hyperparathyroidism, unspecified; R14.1 Gas pain; R26.2 Difficulty in walking, not elsewhere classified; Z95.0 Presence of cardiac pacemaker; Z91.81 History of falling; Z79.82 Long term (current) use of aspirin; Z79.899 Other long term (current) drug therapy; Z87.19 Personal history of other diseases of the digestive system; Z88.8 Allergy status to other drugs, medicaments and biological substances
CPT/HCPCS: 36415; 73020; 80053; 82728; 83036; 83540; 83550; 85014; 85018; 85025; 86850; 86900; 86901; 87070; 97110; 97116; 97163; 97167; 97530; 97535; C1713; C1776

== ENCOUNTER 2023-12-31 15:30 | Emergency (ER) | payer MEDICARE, OTHER, SELFPAY ==
[2023-12-31 15:36] VITALS: BMI 19.1
--- NOTE | 2023-12-31 16:18 | ED.GENMED ---
History of Present Illness
General
Chief Complaint: Psychiatric Problem
Time Seen by Provider: 12/31/23 15:33
History of Present Illness
History of Present Illness:
73-year-old female with history of severe anxiety and bipolar disorder presenting to the emergency department for increased anxiety. Patient arrives from [facility], where she has been feeling very anxious. She notes increased anxiety after recent
shoulder surgery on 12/24. Patient is on lithium, ariprazole, trazodone, lorazepam. Patient continues to explain that she 'does not want to be here ', however denies any suicidal or homicidal ideations. Patient's niece arrives to is her primary
family contact. She notes that patient has been struggling with this issue since being placed in [facility]. Patient denies chest pain or difficulty breathing. Notes that her pain is controlled to her left arm. Patient expresses frustrations with
her facility. No additional history obtained at this time
Past History
Past History
ED Past Medical History: HTN and Psychiatric
Phy Exam
Physical Exam
Physical Exam:
General: Well-appearing, no clinical signs of dehydration, nontoxic and in no acute distress
HEENT: protecting airway
Neck: appears supple
CV: Normal heart rate, regular rhythm
Resp: No accessory muscle use, no increased work of breathing
Abd: Soft and non-distended, no tenderness to palpation, normal bowel sounds
Extremities: No deformities, no swelling, no erythema
Neuro: alert, no focal neurologic deficit
: deferred
Rectal: deferred
Psych: Normal affect
Skin: Intact
Course
Orders/Labs/Results
Orders:
Orders
12/31/23 15:46
Crisis Consult Urgent
Reason for Consult: anxiety/bipolar
12/31/23 16:17
Lorazepam [Ativan] 1 mg IM NOW STA
Vital Signs
Initial and Last Documented VS:
Initial Vital Signs
Pulse Resp BP Pulse Ox
96 20 169/84 99
12/31/23 18:00 12/31/23 18:00 12/31/23 18:00 12/31/23 18:00
Last Documented Vital Signs
Pulse Resp BP Pulse Ox
96 20 169/84 99
12/31/23 18:00 12/31/23 18:00 12/31/23 18:00 12/31/23 18:00
MDM/Problems Addressed
MDM/Problems Addressed:
73-year-old female with history of severe anxiety and bipolar disorder presenting for increased anxiety from her rehab facility. Vital signs on arrival are significant for mild hypertension.
On physical exam, patient is well-appearing, no acute distress. She does appear anxious, however is directable. She is not suicidal, does not appear to be a threat to herself or others. Most of her anxiety and frustrations appear to stem from
discontent with her facility. Will administer a dose of Ativan and have crisis evaluate patient
16:40 -in discussion with crisis and niece, gordon would prefer to take her home. They have a nurse that can care for her at home and patient has been rehabbing well with her arm. Feel that this is a reasonable plan given that patient is not
presently threat to herself. Gordon has to go picking tech her son and will come back with final plan
19:35 -Per niece, plan for patient to go back to facility tonight, and then will arrange for her to go home. Patient stable for discharge. Will provide transfer
*Critical Care Note
Total Time (30-74mins, 75-104mins- exclusive of procedures): Not Applicable
ED Attending Note
-
Portions of this chart may have been created with voice recognition software.� Occasional wrong word or��sound alike� substitutions may have occurred due to the inherent limitations of voice recognition software.
Discharge Plan
Departure
Patient Disposition: Home (Routine Discharge)
Date of Disposition: 12/31/23
Time of Disposition: 19:41
Patient with high blood pressure during this ER visit?: Yes
Condition: Good
Discharge Problem:
Anxiety
Instructions: Generalized Anxiety Disorder (DC), BLOOD PRESSURE
Prescriptions:
No Action
citalopram 40 mg Tablet
40 mg PO HS
trazodone 50 mg Tablet
50 mg PO HS
atorvastatin 10 mg Tablet
10 mg PO DAILY
lorazepam 0.5 mg Tablet
0.5 mg PO TID PRN (Reason: anxiety)
ferrous sulfate 325 mg (65 mg iron) Tablet
325 mg PO DAILY
lithium carbonate 150 mg Capsule
150 mg PO HS
lamotrigine 25 mg Tablet
100 mg PO HS
Patient Comments:
10/12/23: fills 50mg and 25mg tablets, unsure of the strength/amounts she takes.
loratadine 10 mg Tablet
10 mg PO DAILY
aripiprazole 2 mg Tablet
5 mg PO HS
Visbiome 112.5 billion cell Capsule
1 cap PO DAILY
donepezil 5 mg Tablet
5 mg PO HS
psyllium Packet
1 packet PO DAILY
aspirin 325 mg Tablet
325 mg PO DAILY Qty: 30 0RF
Rx Instructions:
Take daily x4 weeks for blood clot prevention; then resume 81 mg daily.
docusate sodium 100 mg Capsule
100 mg PO BID Qty: 30 0RF
lidocaine 4 % Adhesive Patch,Medicated
2 patch topical DAILY Qty: 30 0RF
Rx Instructions:
Apply to low back. 12 hours off, 12 hours on.
polyethylene glycol 3350 [HealthyLax] 17 gram Powder In Packet
17 g PO DAILY Qty: 14 0RF
simethicone 80 mg Tablet,Chewable
80 mg PO TIDPRN PRN (Reason: gas pains) Qty: 10 0RF
acetaminophen 325 mg Tablet
650 mg PO Q6H PRN (Reason: mild pain) Qty: 30 0RF
Rx Instructions:
DO NOT exceed >4000 mg daily while on Tylenol with Codeine.
acetaminophen-codeine 300-30 mg Tablet
1 - 2 tab PO Q6H PRN (Reason: moderate-severe pain) Qty: 20 0RF
Rx Instructions:
1 tab for moderate pain, 2 if severe.
Dx total joint.
ondansetron HCl 4 mg tablet
4 mg PO Q6H PRN (Reason: nausea and vomiting) Qty: 30 0RF
sennosides [senna] 8.6 mg tablet
17.2 mg PO BID PRN (Reason: Constipation) Qty: 30 0RF
losartan 50 mg Tablet
50 mg PO DAILY Qty: 0 0RF
Rx Instructions:
HOLD IF systolic blood pressure <130 while on Tylenol with Codeine.
amlodipine 10 mg Tablet
10 mg PO DAILY Qty: 1 0RF
Rx Instructions:
HOLD IF systolic blood pressure <130 while on Tylenol with Codeine.
Referrals:
Kishore Garcia MD [Family Provider] -
Activity Restrictions/Additional Instructions:
You were seen in the emergency department for anxiety
You were seen by crisis. It was determined that you are safe to go back to your facility, with follow-up with your psychiatrist.
Please follow-up closely with your primary care physician.
Return to the emergency department for any worsening of your symptoms, any thoughts of wanting to hurt yourself or others, or any development of chest pain, difficulty breathing, abdominal pain with persistent vomiting and inability to tolerate food
or liquid by mouth (concern for dehydration), weakness, headache or confusion, fever greater than 100.4, or any additional symptoms that are concerning to you.
Thank you for choosing [facility].
Interventions
Interventions:
*Risk Screen - Suicide Last Done: 12/31/23 15:38
*General Assessment Last Done: 12/31/23 15:38
*Neglect/Abuse Screening Last Done: 12/31/23 15:38
*ED COVID-19 Vaccine History Last Done: 12/31/23 15:38
ED-Psychological Assessment Last Done: 12/31/23 16:58
Discharge Date and Time
Print Language: CYPRIOT
[2023-12-31] MEDS: ATIVAN 1 MG IM (16:24)
[2023-12-31 18:00] VITALS: BP 169/84
== END 2023-12-31 21:44 | disposition home or self-care (01) ==
LOC: EMR 15:30
PROVIDERS: EMERGENCY PHYSICIAN Student in an Organized Health Care Education/Training Program; FAMILY PHYSICIAN Family Medicine
DX: F41.9 Anxiety disorder, unspecified (principal); M79.602 Pain in left arm; F31.9 Bipolar disorder, unspecified; I10 Essential (primary) hypertension; Z98.890 Other specified postprocedural states; Z79.899 Other long term (current) drug therapy; Z79.82 Long term (current) use of aspirin
CPT/HCPCS: 99284; 96372

== ENCOUNTER → 2024-01-26 11:44 | Outpatient (REF) | payer MEDICARE, OTHER, SELFPAY ==
[2024-01-26 12:40] LABS: % Basophils 0.2 % (0-2); % Immature Granulocytes 0.2 % (0-0.5); % Lymphocytes 24.4 % (20.5-51.1); % Monocytes 7.7 % (1.7-9.3); % Neutrophils 66.5 % (42.2-75.2); Absolute Eosinophils 0.1 10^3/uL (0-0.7); Absolute Lymphocytes 1.4 10^3/uL (1.2-3.4); Absolute Monocytes 0.5 10^3/uL (0.1-0.6); Absolute Neutrophils 3.9 10^3/uL (1.4-6.5); Hematocrit 32.4 % (37.0-47.0); Hemoglobin 10.4 g/dL (12.0-16.0); Mean Corp Hgb Conc. 32.1 g/dL (33.0-37.0); Mean Corpuscular Hgb 33.4 pg (27.0-31.0); Mean Corpuscular Volume 104.2 fL (81.0-99.0); Mean Platelet Volume 9.4 fL (7.4-10.4); Nucleated Red Blood Cells % 0 %; Platelet Count 247 10^3/uL (130-400); Red Blood Cell Count 3.11 10^6/uL (4.20-5.40); Red Cell Dist. Width 13.6 % (11.5-14.5); White Blood Cell Count 5.8 10^3/uL (4.8-10.8)
[2024-01-26 13:06] LABS: ALT (SGPT) 37 U/L (0-35); AST (SGOT) 43 U/L (14-36); Albumin 4.2 g/dl (3.5-5.0); Alkaline Phosphatase 136 U/L (38-126); Blood Urea Nitrogen 21 mg/dl (7-17); Calcium 10.9 mg/dl (8.4-10.2); Carbon Dioxide 25 mmol/L (22-30); Chloride 105 mmol/L (98-107); Glucose 94 mg/dl (70-99); Magnesium 2.3 mg/dl (1.6-2.3); Potassium 4.3 mmol/L (3.5-5.1); Sodium 140 mmol/L (135-145); Total Bilirubin 0.3 mg/dl (0.2-1.3); Total Protein 6.7 g/dl (6.3-8.2); eGFR 42.88
== END ==
LOC: REG 11:44
PROVIDERS: ATTENDING PHYSICIAN Nurse Practitioner Family
DX: Z96.612 Presence of left artificial shoulder joint (principal); K59.09 Other constipation; I49.5 Sick sinus syndrome; E20.9 Hypoparathyroidism, unspecified
CPT/HCPCS: 36415; 80053; 83735; 85025

== ENCOUNTER → 2024-02-13 17:31 | Outpatient (REF) | payer MEDICARE, OTHER, SELFPAY ==
[2024-02-13 18:00] LABS: % Basophils 0.5 % (0-2); % Immature Granulocytes 0.3 % (0-0.5); % Lymphocytes 22.7 % (20.5-51.1); % Monocytes 9.9 % (1.7-9.3); % Neutrophils 65.6 % (42.2-75.2); Absolute Eosinophils 0.1 10^3/uL (0-0.7); Absolute Lymphocytes 1.4 10^3/uL (1.2-3.4); Absolute Monocytes 0.6 10^3/uL (0.1-0.6); Hematocrit 31.5 % (37.0-47.0); Hemoglobin 10.1 g/dL (12.0-16.0); Mean Corp Hgb Conc. 32.1 g/dL (33.0-37.0); Mean Corpuscular Hgb 33.1 pg (27.0-31.0); Mean Corpuscular Volume 103.3 fL (81.0-99.0); Mean Platelet Volume 9.2 fL (7.4-10.4); Nucleated Red Blood Cells % 0 %; Platelet Count 237 10^3/uL (130-400); Red Blood Cell Count 3.05 10^6/uL (4.20-5.40); Red Cell Dist. Width 13.1 % (11.5-14.5)
[2024-02-13 18:25] LABS: Blood Urea Nitrogen 27 mg/dl (7-17); Carbon Dioxide 24 mmol/L (22-30); Chloride 105 mmol/L (98-107); Glucose 101 mg/dl (70-99); Iron 74 ug/dl (37-170); Lithium 0.3 mmol/L (0.6-1.2); Sodium 140 mmol/L (135-145); eGFR 31.08
[2024-02-13 18:34] LABS: Percent Saturation 16 % (20-50); Total Iron Binding Capacity 451 ug/dl (265-497)
[2024-02-13 18:55] LABS: TSH 0.98 uIU/ml (0.47-4.68)
[2024-02-13 18:59] LABS: Ferritin 27.2 ng/ml (11.1-264.0)
== END ==
LOC: REG 17:31
PROVIDERS: ATTENDING PHYSICIAN Psychiatry & Neurology Psychiatry; FAMILY PHYSICIAN Nurse Practitioner Family; OTHER PHYSICIAN Internal Medicine Gastroenterology
DX: F31.76 Bipolar disorder, in full remission, most recent episode depressed (principal); D64.9 Anemia, unspecified
CPT/HCPCS: 36415; 80048; 80178; 82728; 83540; 83550; 84443; 85025

== ENCOUNTER → 2024-02-15 16:59 | Outpatient (REF) | payer MEDICARE, OTHER, SELFPAY ==
[2024-02-15 19:08] LABS: Folate > 20.0 ng/ml (2.76-20); Vitamin B12 873 pg/ml (239-931)
== END ==
LOC: REG 16:59
PROVIDERS: ATTENDING PHYSICIAN Internal Medicine Gastroenterology; FAMILY PHYSICIAN Nurse Practitioner Family; OTHER PHYSICIAN Internal Medicine Hematology & Oncology
DX: D50.9 Iron deficiency anemia, unspecified (principal); N18.32 Chronic kidney disease, stage 3b; M19.012 Primary osteoarthritis, left shoulder
CPT/HCPCS: 36415; 82607; 82746

== ENCOUNTER → 2024-02-22 17:07 | Outpatient (REF) | payer MEDICARE, OTHER, SELFPAY | LOC: RAD 17:07 | PROVIDERS: ATTENDING PHYSICIAN Podiatrist; FAMILY PHYSICIAN Nurse Practitioner Family | DX: M19.072 Primary osteoarthritis, left ankle and foot (principal); M25.572 Pain in left ankle and joints of left foot; R26.2 Difficulty in walking, not elsewhere classified | CPT/HCPCS: 73610 ==

== ENCOUNTER → 2024-02-25 15:20 | Outpatient (REF) | payer MEDICARE, OTHER, SELFPAY ==
[2024-02-25 17:13] LABS: % Basophils 0.4 % (0-2); % Eosinophils 1.2 % (0-6); % Immature Granulocytes 0.2 % (0-0.5); % Lymphocytes 16.3 % (20.5-51.1); % Monocytes 9.7 % (1.7-9.3); % Neutrophils 72.2 % (42.2-75.2); Absolute Eosinophils 0.1 10^3/uL (0-0.7); Absolute Lymphocytes 0.8 10^3/uL (1.2-3.4); Absolute Monocytes 0.5 10^3/uL (0.1-0.6); Absolute Neutrophils 3.6 10^3/uL (1.4-6.5); Hematocrit 31.2 % (37.0-47.0); Hemoglobin 9.5 g/dL (12.0-16.0); Mean Corp Hgb Conc. 30.4 g/dL (33.0-37.0); Mean Corpuscular Hgb 32.8 pg (27.0-31.0); Mean Corpuscular Volume 107.6 fL (81.0-99.0); Mean Platelet Volume 9.5 fL (7.4-10.4); Nucleated Red Blood Cells % 0 %; Platelet Count 191 10^3/uL (130-400); Red Cell Dist. Width 12.8 % (11.5-14.5)
== END ==
LOC: OIDL 15:20
PROVIDERS: ATTENDING PHYSICIAN Nurse Practitioner Adult Health
DX: D64.9 Anemia, unspecified (principal)
CPT/HCPCS: 85025

== ENCOUNTER 2024-03-08 13:00 | Emergency (ER) | payer MEDICARE, OTHER, SELFPAY ==
[2024-03-08 13:11] VITALS: BP 171/68
[2024-03-08 13:38] LABS: % Basophils 0.4 % (0-2); % Eosinophils 0.9 % (0-6); % Immature Granulocytes 0.2 % (0-0.5); % Lymphocytes 17.5 % (20.5-51.1); % Monocytes 10.2 % (1.7-9.3); % Neutrophils 70.8 % (42.2-75.2); Absolute Eosinophils 0.1 10^3/uL (0-0.7); Absolute Monocytes 0.6 10^3/uL (0.1-0.6); Hematocrit 32.4 % (37.0-47.0); Hemoglobin 10.3 g/dL (12.0-16.0); Mean Corp Hgb Conc. 31.8 g/dL (33.0-37.0); Mean Corpuscular Hgb 32.4 pg (27.0-31.0); Mean Corpuscular Volume 101.9 fL (81.0-99.0); Mean Platelet Volume 9.2 fL (7.4-10.4); Nucleated Red Blood Cells % 0 %; Platelet Count 169 10^3/uL (130-400); Red Blood Cell Count 3.18 10^6/uL (4.20-5.40); Red Cell Dist. Width 13.3 % (11.5-14.5); White Blood Cell Count 5.6 10^3/uL (4.8-10.8)
[2024-03-08 14:08] LABS: ALT (SGPT) 36 U/L (0-35); AST (SGOT) 33 U/L (14-36); Albumin 4.4 g/dl (3.5-5.0); Alkaline Phosphatase 121 U/L (38-126); Blood Urea Nitrogen 18 mg/dl (7-17); Calcium 10.5 mg/dl (8.4-10.2); Carbon Dioxide 26 mmol/L (22-30); Chloride 105 mmol/L (98-107); Glucose 103 mg/dl (70-99); Lipase 231 U/L (23-300); Potassium 4.6 mmol/L (3.5-5.1); Sodium 138 mmol/L (135-145); Total Bilirubin 0.2 mg/dl (0.2-1.3); Total Protein 6.9 g/dl (6.3-8.2); eGFR 39.23
--- NOTE | 2024-03-08 15:26 | ED.GENMED ---
History of Present Illness
<Diego Slater PA-C - Last Filed: 03/09/24 08:17>
General
Chief Complaint: Abdominal Pain
Time Seen by Provider: 03/08/24 15:10
History of Present Illness
History of Present Illness:
73-year-old female presents to the emergency department for evaluation of right mid to upper abdominal pain beginning today. No pain at rest, worse when she attempts to sit upright or walk. Pain also worsens with deep breathing. Ate a poached egg
this morning but denies any pain acutely after eating. No prior abdominal surgeries
Past History
<Diego Slater PA-C - Last Filed: 03/09/24 08:17>
Past History
ED Past Medical History: HTN and Psychiatric
Review of Systems
<Diego Slater PA-C - Last Filed: 03/09/24 08:17>
Review of Systems
Allergies reviewed?: Yes
All Other Systems: ROS reviewed and negative except as documented in HPI and ROS
Phy Exam
<Diego Slater PA-C - Last Filed: 03/09/24 08:17>
Physical Exam
Physical Exam:
GEN: Well appearing, NAD, WDWN
HEENT: Oral mucosa moist, no scleral icterus
Cardiac: Regular rate
Lung: No respiratory distress, no tachypnea
Abdomen: Soft, nontender
MSK: No gross deformity or injuries
Skin: Good color, no pallor or jaundice, no rashes
Neuro: AO x3, moves all extremities freely
Psych: Calm, cooperative
Course
<Diego Slater PA-C - Last Filed: 03/09/24 08:17>
Orders/Labs/Results
Orders:
Orders
03/08/24 13:14
Electrocardiogram (*1) Urgent
Reason for Study: Abdominal Pain
03/08/24 13:15
EKG- Treatment ONCE
03/08/24 13:29
Complete Blood Count/With Diff Urgent
Comprehensive Metabolic Panel Urgent
Lipase Urgent
03/08/24 15:26
Lidocaine [Lidocaine 4% Patch] 1 patch TOPICAL NOW STA
Apply Lidocaine patch(s) to:: RUQ abdomen
US Abdomen Complete/Upper Urgent
Comment:
Reason For Exam: RUQ pain
03/08/24 18:45
Lidocaine [Lidocaine 4% Patch] 1 patch .ROUTE .STK-MED ONE
Abnormal Lab Results
03/08/24
13:29
RBC 3.18 L 10^6/uL
(4.20-5.40)
Hgb 10.3 L g/dL
(12.0-16.0)
Hct 32.4 L %
(37.0-47.0)
MCV 101.9 H fL
(81.0-99.0)
MCH 32.4 H pg
(27.0-31.0)
MCHC 31.8 L g/dL
(33.0-37.0)
Absolute Lymphs (auto) 1.0 L 10^3/uL
(1.2-3.4)
Lymphocytes % 17.5 L %
(20.5-51.1)
Monocytes % 10.2 H %
(1.7-9.3)
BUN 18 H mg/dl
(7-17)
Creatinine 1.4 H mg/dL
(0.6-1.0)
Glucose 103 H mg/dl
(70-99)
Calcium 10.5 H mg/dl
(8.4-10.2)
ALT 36 H U/L
(0-35)
03/08/24 13:29
03/08/24 13:29
Vital Signs
Initial and Last Documented VS:
Initial Vital Signs
Temp Pulse Resp BP Pulse Ox
98.8 F 59 16 171/68 100
03/08/24 13:11 03/08/24 13:11 03/08/24 13:11 03/08/24 13:11 03/08/24 13:11
Last Documented Vital Signs
Temp Pulse Resp BP Pulse Ox
98.8 F 59 16 171/68 100
03/08/24 13:11 03/08/24 13:11 03/08/24 13:11 03/08/24 13:11 03/08/24 13:11
<Jj Redman PA-C - Last Filed: 03/08/24 18:39>
Orders/Labs/Results
Orders:
Orders
03/08/24 13:14
Electrocardiogram (*1) Urgent
Reason for Study: Abdominal Pain
03/08/24 13:15
EKG- Treatment ONCE
03/08/24 13:29
Complete Blood Count/With Diff Urgent
Comprehensive Metabolic Panel Urgent
Lipase Urgent
03/08/24 15:26
Lidocaine [Lidocaine 4% Patch] 1 patch TOPICAL NOW STA
Apply Lidocaine patch(s) to:: RUQ abdomen
US Abdomen Complete/Upper Urgent
Comment:
Reason For Exam: RUQ pain
03/08/24 18:45
Lidocaine [Lidocaine 4% Patch] 1 patch .ROUTE .STK-MED ONE
Abnormal Lab Results
03/08/24
13:29
RBC 3.18 L 10^6/uL
(4.20-5.40)
Hgb 10.3 L g/dL
(12.0-16.0)
Hct 32.4 L %
(37.0-47.0)
MCV 101.9 H fL
(81.0-99.0)
MCH 32.4 H pg
(27.0-31.0)
MCHC 31.8 L g/dL
(33.0-37.0)
Absolute Lymphs (auto) 1.0 L 10^3/uL
(1.2-3.4)
Lymphocytes % 17.5 L %
(20.5-51.1)
Monocytes % 10.2 H %
(1.7-9.3)
BUN 18 H mg/dl
(7-17)
Creatinine 1.4 H mg/dL
(0.6-1.0)
Glucose 103 H mg/dl
(70-99)
Calcium 10.5 H mg/dl
(8.4-10.2)
ALT 36 H U/L
(0-35)
03/08/24 13:29
03/08/24 13:29
Vital Signs
Initial and Last Documented VS:
Initial Vital Signs
Temp Pulse Resp BP Pulse Ox
98.8 F 59 16 171/68 100
03/08/24 13:11 03/08/24 13:11 03/08/24 13:11 03/08/24 13:11 03/08/24 13:11
Last Documented Vital Signs
Temp Pulse Resp BP Pulse Ox
98.8 F 59 16 171/68 100
03/08/24 13:11 03/08/24 13:11 03/08/24 13:11 03/08/24 13:11 03/08/24 13:11
<Diego Slater PA-C - Last Filed: 03/09/24 08:17>
MDM/Problems Addressed
MDM/Problems Addressed:
Will send for ultrasound to rule out biliary disease given location of pain but certainly sounds mechanical/muscular in nature. Signed out to Norm SIEGEL pending imaging
<Jj Redman PA-C - Last Filed: 03/08/24 18:39>
*Critical Care Note
Total Time (30-74mins, 75-104mins- exclusive of procedures): Not Applicable
<Jj Redman PA-C - Last Filed: 03/08/24 18:39>
Update Note
Update Note:
Ultrasound abdomen negative for acute finding. Suspect possible musculoskeletal pain. Stable for discharge
ED Attending Note
<Diego Slater PA-C - Last Filed: 03/09/24 08:17>
-
Portions of this chart may have been created with voice recognition software.� Occasional wrong word or��sound alike� substitutions may have occurred due to the inherent limitations of voice recognition software.
Discharge Plan
Departure
Patient Disposition: Home (Routine Discharge)
Date of Disposition: 03/08/24
Time of Disposition: 18:39
Patient with high blood pressure during this ER visit?: No
Discharge Problem:
Abdominal pain
Instructions: Abdominal Pain
Prescriptions:
No Action
citalopram 40 mg Tablet
40 mg PO HS
trazodone 50 mg Tablet
50 mg PO HS
atorvastatin 10 mg Tablet
10 mg PO DAILY
lorazepam 0.5 mg Tablet
0.5 mg PO TID PRN (Reason: anxiety)
ferrous sulfate 325 mg (65 mg iron) Tablet
325 mg PO DAILY
lithium carbonate 150 mg Capsule
150 mg PO HS
lamotrigine 25 mg Tablet
100 mg PO HS
Patient Comments:
10/12/23: fills 50mg and 25mg tablets, unsure of the strength/amounts she takes.
loratadine 10 mg Tablet
10 mg PO DAILY
aripiprazole 2 mg Tablet
5 mg PO HS
Visbiome 112.5 billion cell Capsule
1 cap PO DAILY
donepezil 5 mg Tablet
5 mg PO HS
psyllium Packet
1 packet PO DAILY
aspirin 325 mg Tablet
325 mg PO DAILY Qty: 30 0RF
Rx Instructions:
Take daily x4 weeks for blood clot prevention; then resume 81 mg daily.
docusate sodium 100 mg Capsule
100 mg PO BID Qty: 30 0RF
lidocaine 4 % Adhesive Patch,Medicated
2 patch topical DAILY Qty: 30 0RF
Rx Instructions:
Apply to low back. 12 hours off, 12 hours on.
polyethylene glycol 3350 [HealthyLax] 17 gram Powder In Packet
17 g PO DAILY Qty: 14 0RF
simethicone 80 mg Tablet,Chewable
80 mg PO TIDPRN PRN (Reason: gas pains) Qty: 10 0RF
acetaminophen 325 mg Tablet
650 mg PO Q6H PRN (Reason: mild pain) Qty: 30 0RF
Rx Instructions:
DO NOT exceed >4000 mg daily while on Tylenol with Codeine.
acetaminophen-codeine 300-30 mg Tablet
1 - 2 tab PO Q6H PRN (Reason: moderate-severe pain) Qty: 20 0RF
Rx Instructions:
1 tab for moderate pain, 2 if severe.
Dx total joint.
ondansetron HCl 4 mg tablet
4 mg PO Q6H PRN (Reason: nausea and vomiting) Qty: 30 0RF
sennosides [senna] 8.6 mg tablet
17.2 mg PO BID PRN (Reason: Constipation) Qty: 30 0RF
losartan 50 mg Tablet
50 mg PO DAILY Qty: 0 0RF
Rx Instructions:
HOLD IF systolic blood pressure <130 while on Tylenol with Codeine.
amlodipine 10 mg Tablet
10 mg PO DAILY Qty: 1 0RF
Rx Instructions:
HOLD IF systolic blood pressure <130 while on Tylenol with Codeine.
Referrals:
Eder,Korin, SENIOR APPLICATION SECURITY CONSULTANT [Family Provider] -
Activity Restrictions/Additional Instructions:
You may use ibuprofen or Tylenol for pain. Please return here for worsening symptoms otherwise follow-up with your doctor
Interventions
Interventions:
*Risk Screen - Suicide Last Done: 03/08/24 13:11
*Neglect/Abuse Screening Last Done: 03/08/24 13:11
*Nursing Disposition Last Done: 03/08/24 18:55
DI-Szuqwh-Kjqqbhvxtb Assessment Last Done: 03/08/24 15:24
Discharge Date and Time
Discharge Date/Time: 03/08/24 18:55
Print Language: SAMI
[2024-03-08] MEDS: LIDOCAINE 4% PATCH 1 PATCH TOPICAL (18:46)
== END 2024-03-08 18:55 | disposition home or self-care (01) ==
LOC: EMR 13:00
PROVIDERS: Emergency Medicine; EMERGENCY PHYSICIAN Student in an Organized Health Care Education/Training Program; FAMILY PHYSICIAN Nurse Practitioner Family
DX: R10.11 Right upper quadrant pain (principal); I10 Essential (primary) hypertension
CPT/HCPCS: 99284; 76700; 80053; 83690; 85025; 93005

== ENCOUNTER → 2024-03-21 09:43 | Outpatient (REF) | payer MEDICARE, OTHER, SELFPAY | LOC: RAD 09:43 | PROVIDERS: ATTENDING PHYSICIAN Physician Assistant; FAMILY PHYSICIAN Nurse Practitioner Family | DX: M81.0 Age-related osteoporosis without current pathological fracture (principal) | CPT/HCPCS: 77080; 77081 ==

== ENCOUNTER → 2024-03-24 09:51 | Day surgery (SDC) | payer MEDICARE, OTHER, SELFPAY ==
[2024-03-24 11:39] LABS: Hematocrit 34.9 % (37.0-47.0); Hemoglobin 11.1 g/dL (12.0-16.0); Mean Corp Hgb Conc. 31.8 g/dL (33.0-37.0); Mean Corpuscular Hgb 32.7 pg (27.0-31.0); Mean Corpuscular Volume 102.9 fL (81.0-99.0); Mean Platelet Volume 10.2 fL (7.4-10.4); Platelet Count 208 10^3/uL (130-400); Red Blood Cell Count 3.39 10^6/uL (4.20-5.40); Red Cell Dist. Width 13.2 % (11.5-14.5); White Blood Cell Count 5.4 10^3/uL (4.8-10.8)
[2024-03-24 11:50] LABS: INR 0.87; PT 12.4 Sec (11.4-14.6)
[2024-03-24 11:51] LABS: APTT 32.6 Sec (23.4-35.0)
[2024-03-24 12:10] LABS: ALT (SGPT) 29 U/L (0-35); AST (SGOT) 31 U/L (14-36); Albumin 4.3 g/dl (3.5-5.0); Alkaline Phosphatase 129 U/L (38-126); Blood Urea Nitrogen 20 mg/dl (7-17); Calcium 10.9 mg/dl (8.4-10.2); Carbon Dioxide 23 mmol/L (22-30); Chloride 113 mmol/L (98-107); Glucose 91 mg/dl (70-99); Potassium 4.4 mmol/L (3.5-5.1); Sodium 144 mmol/L (135-145); Total Bilirubin 0.3 mg/dl (0.2-1.3); Total Protein 6.8 g/dl (6.3-8.2); eGFR 39.23
== END ==
LOC: SDSPAT 09:51
PROVIDERS: ATTENDING PHYSICIAN Surgery; FAMILY PHYSICIAN Nurse Practitioner Family
DX: Z01.812 Encounter for preprocedural laboratory examination (principal)
CPT/HCPCS: 85027; 36415; 80053; 85610; 85730

== ENCOUNTER → 2024-03-27 15:58 | Outpatient (REF) | payer MEDICARE, OTHER, SELFPAY | LOC: RAD 15:58 | PROVIDERS: ATTENDING PHYSICIAN Nurse Practitioner Family; REFERRING PHYSICIAN Podiatrist | DX: R22.42 Localized swelling, mass and lump, left lower limb (principal) | CPT/HCPCS: 93971 ==

== ENCOUNTER → 2024-04-03 14:25 | Outpatient (REF) | payer MEDICARE, OTHER, SELFPAY | LOC: RAD 14:25 | PROVIDERS: ATTENDING PHYSICIAN Nurse Practitioner Family | DX: M89.8X1 Other specified disorders of bone, shoulder (principal); R07.81 Pleurodynia | CPT/HCPCS: 71101; 73010 ==

== ENCOUNTER → 2024-04-04 11:14 | Outpatient (REF) | payer MEDICARE, OTHER, SELFPAY ==
[2024-04-04 13:19] LABS: % Basophils 0.2 % (0-2); % Eosinophils 0.2 % (0-6); % Immature Granulocytes 0.2 % (0-0.5); % Lymphocytes 8.8 % (20.5-51.1); % Monocytes 8.3 % (1.7-9.3); % Neutrophils 82.3 % (42.2-75.2); Absolute Lymphocytes 0.5 10^3/uL (1.2-3.4); Absolute Monocytes 0.5 10^3/uL (0.1-0.6); Absolute Neutrophils 4.5 10^3/uL (1.4-6.5); Hematocrit 34.3 % (37.0-47.0); Hemoglobin 11.1 g/dL (12.0-16.0); Mean Corp Hgb Conc. 32.4 g/dL (33.0-37.0); Mean Corpuscular Hgb 33.1 pg (27.0-31.0); Mean Corpuscular Volume 102.4 fL (81.0-99.0); Mean Platelet Volume 9.7 fL (7.4-10.4); Nucleated Red Blood Cells % 0 %; Platelet Count 166 10^3/uL (130-400); Red Blood Cell Count 3.35 10^6/uL (4.20-5.40); Red Cell Dist. Width 13.2 % (11.5-14.5); Reticulocyte Count 1.6 % (0.4-2.8); White Blood Cell Count 5.5 10^3/uL (4.8-10.8)
[2024-04-04 13:40] LABS: ALT (SGPT) 24 U/L (0-35); AST (SGOT) 26 U/L (14-36); Albumin 4.4 g/dl (3.5-5.0); Alkaline Phosphatase 143 U/L (38-126); Blood Urea Nitrogen 25 mg/dl (7-17); Calcium 11.1 mg/dl (8.4-10.2); Carbon Dioxide 25 mmol/L (22-30); Chloride 108 mmol/L (98-107); Glucose 133 mg/dl (70-99); Iron 52 ug/dl (37-170); Potassium 4.6 mmol/L (3.5-5.1); Sodium 141 mmol/L (135-145); Total Bilirubin 0.4 mg/dl (0.2-1.3); eGFR 36.12
[2024-04-04 13:51] LABS: Percent Saturation 17 % (20-50); Total Iron Binding Capacity 304 ug/dl (265-497)
[2024-04-04 14:51] LABS: Vitamin B12 754 pg/ml (239-931)
[2024-04-05 13:49] LABS: Erythropoietin (EPO) 19 mU/mL (4-27)
== END ==
LOC: RAD 11:14
PROVIDERS: ATTENDING PHYSICIAN Nurse Practitioner Adult Health; FAMILY PHYSICIAN Nurse Practitioner Family; REFERRING PHYSICIAN Internal Medicine Gastroenterology
DX: Z91.81 History of falling (principal); R10.9 Unspecified abdominal pain; D64.9 Anemia, unspecified; N18.30 Chronic kidney disease, stage 3 unspecified; D50.9 Iron deficiency anemia, unspecified; R71.8 Other abnormality of red blood cells; R53.82 Chronic fatigue, unspecified; D51.9 Vitamin B12 deficiency anemia, unspecified
CPT/HCPCS: 36415; 76700; 80053; 82607; 82668; 82728; 82746; 83540; 83550; 85025; 85045

== ENCOUNTER 2024-04-06 07:41 | Emergency (ER) | payer MEDICARE, OTHER, SELFPAY ==
[2024-04-06 07:45] VITALS: BP 144/63
--- NOTE | 2024-04-06 08:00 | EDRN ---
Pt ambulated from triage to room #37 w/ walker.
--- NOTE | 2024-04-06 08:15 | EDRN ---
Ambrocio Slater PA in room w/ pt at this time.
[2024-04-06 08:45] LABS: % Basophils 0.4 % (0-2); % Eosinophils 2.8 % (0-6); % Immature Granulocytes 0.4 % (0-0.5); % Lymphocytes 8.9 % (20.5-51.1); % Monocytes 10.3 % (1.7-9.3); % Neutrophils 77.2 % (42.2-75.2); Absolute Eosinophils 0.2 10^3/uL (0-0.7); Absolute Lymphocytes 0.5 10^3/uL (1.2-3.4); Absolute Monocytes 0.6 10^3/uL (0.1-0.6); Absolute Neutrophils 4.2 10^3/uL (1.4-6.5); Hematocrit 31.9 % (37.0-47.0); Mean Corp Hgb Conc. 31.3 g/dL (33.0-37.0); Mean Corpuscular Hgb 31.9 pg (27.0-31.0); Mean Corpuscular Volume 101.9 fL (81.0-99.0); Mean Platelet Volume 9.5 fL (7.4-10.4); Nucleated Red Blood Cells % 0 %; Platelet Count 141 10^3/uL (130-400); Red Blood Cell Count 3.13 10^6/uL (4.20-5.40); Red Cell Dist. Width 13.1 % (11.5-14.5); White Blood Cell Count 5.4 10^3/uL (4.8-10.8)
[2024-04-06 08:56] LABS: ALT (SGPT) 25 U/L (0-35); AST (SGOT) 28 U/L (14-36); Albumin 3.5 g/dl (3.5-5.0); Alkaline Phosphatase 104 U/L (38-126); Blood Urea Nitrogen 24 mg/dl (7-17); Calcium 10.1 mg/dl (8.4-10.2); Carbon Dioxide 25 mmol/L (22-30); Chloride 106 mmol/L (98-107); Glucose 114 mg/dl (70-99); Lithium 0.3 mmol/L (0.6-1.2); Potassium 4.4 mmol/L (3.5-5.1); Sodium 138 mmol/L (135-145); Total Bilirubin 0.2 mg/dl (0.2-1.3); Total Protein 5.7 g/dl (6.3-8.2); eGFR 42.88
[2024-04-06 09:34] VITALS: BP 137/54; BMI 23.8
--- NOTE | 2024-04-06 09:51 | ED.GENMED ---
History of Present Illness
General
Chief Complaint: Fall
Time Seen by Provider: 04/06/24 08:00
History of Present Illness
History of Present Illness:
73-year-old female presents the emergency department after a fall. States she was walking back from the bathroom at night when she fell and struck her head on the ground. She does not recall all the events of the fall. Arrives with a large
hematoma to the left frontal scalp. No vision changes or neck pain currently. Has reportedly had several falls this week, states she is having difficulty using her walker as she feels she has not coordinated enough for it. Does not feel unsafe at
home. Her niece is currently at the bedside and helping to care for her. Upcoming parathyroid surgery scheduled at this hospital this week
Past History
Past History
ED Past Medical History: HTN and Psychiatric
Review of Systems
Review of Systems
Allergies reviewed?: Yes
All Other Systems: ROS reviewed and negative except as documented in HPI and ROS
Phy Exam
Physical Exam
Physical Exam:
GEN: Well appearing, NAD, WDWN
HEENT: Large hematoma to the left frontal forehead, no crepitus, oral mucosa moist, no scleral icterus, no nasal congestion. No midline cervical spine tenderness
Cardiac: Regular rate
Lung: No respiratory distress, no tachypnea
MSK: No gross deformity or injuries. No midline thoracic or lumbar spine tenderness, no pelvic crepitus or tenderness
Skin: Good color, no pallor or jaundice, no rashes
Neuro: AO x3; CN II-XII grossly intact. BUE strength 5/5 in all ivy, sensation intact and symmetric. BLE strength 5/5 in all ivy, sensation intact and symmetric
Psych: Calm, cooperative
Course
Orders/Labs/Results
Orders:
Orders
04/06/24 08:18
CT Head W/o Iv Contrast Urgent
Comment:
Reason For Exam: fall
04/06/24 08:35
Complete Blood Count/With Diff Urgent
Comprehensive Metabolic Panel Urgent
Clarinda Urgent
Abnormal Lab Results
04/06/24
08:35
RBC 3.13 L 10^6/uL
(4.20-5.40)
Hgb 10.0 L g/dL
(12.0-16.0)
Hct 31.9 L %
(37.0-47.0)
MCV 101.9 H fL
(81.0-99.0)
MCH 31.9 H pg
(27.0-31.0)
MCHC 31.3 L g/dL
(33.0-37.0)
Absolute Lymphs (auto) 0.5 L 10^3/uL
(1.2-3.4)
Neutrophils % 77.2 H %
(42.2-75.2)
Lymphocytes % 8.9 L %
(20.5-51.1)
Monocytes % 10.3 H %
(1.7-9.3)
BUN 24 H mg/dl
(7-17)
Creatinine 1.3 H mg/dL
(0.6-1.0)
Glucose 114 H mg/dl
(70-99)
Total Protein 5.7 L g/dl
(6.3-8.2)
Clarinda 0.3 L mmol/L
(0.6-1.2)
04/06/24 08:35
04/06/24 08:35
Vital Signs
Initial and Last Documented VS:
Initial Vital Signs
Temp Pulse Resp BP Pulse Ox
98.1 F 67 18 144/63 100
04/06/24 07:45 04/06/24 07:45 04/06/24 07:45 04/06/24 07:45 04/06/24 07:45
Last Documented Vital Signs
Temp Pulse Resp BP Pulse Ox
98.1 F 60 16 137/67 99
04/06/24 07:45 04/06/24 10:15 04/06/24 10:15 04/06/24 10:15 04/06/24 10:15
MDM/Problems Addressed
MDM/Problems Addressed:
Labs and head CT unremarkable. Although she is falling frequently she feels safe at home and does not want to seek out any additional resources from a PT or case management standpoint
*Critical Care Note
Total Time (30-74mins, 75-104mins- exclusive of procedures): Not Applicable
ED Attending Note
-
Portions of this chart may have been created with voice recognition software.� Occasional wrong word or��sound alike� substitutions may have occurred due to the inherent limitations of voice recognition software.
Discharge Plan
Departure
Patient Disposition: Home (Routine Discharge)
Date of Disposition: 04/06/24
Time of Disposition: 10:39
Patient with high blood pressure during this ER visit?: No
Discharge Problem:
Fall, Closed head injury
Instructions: Preventing falls in adults
Prescriptions:
No Action
citalopram 40 mg Tablet
40 mg PO HS
trazodone 50 mg Tablet
50 mg PO HS PRN (Reason: Sleep)
atorvastatin 10 mg Tablet
10 mg PO DAILY
lorazepam 0.5 mg Tablet
0.5 mg PO TID PRN (Reason: anxiety)
lithium carbonate 150 mg Capsule
150 mg PO HS
lamotrigine 25 mg Tablet
100 mg PO HS
Patient Comments:
10/12/23: fills 50mg and 25mg tablets, unsure of the strength/amounts she takes.
aripiprazole 2 mg Tablet
5 mg PO HS
donepezil 5 mg Tablet
5 mg PO HS
acetaminophen 325 mg Tablet
650 mg PO Q6H PRN (Reason: mild pain) Qty: 30 0RF
Rx Instructions:
DO NOT exceed >4000 mg daily while on Tylenol with Codeine.
losartan 50 mg Tablet
50 mg PO DAILY Qty: 0 0RF
Rx Instructions:
HOLD IF systolic blood pressure <130 while on Tylenol with Codeine.
amlodipine 10 mg Tablet
10 mg PO DAILY Qty: 1 0RF
Rx Instructions:
HOLD IF systolic blood pressure <130 while on Tylenol with Codeine.
Metamucil Packet
1 packet PO DAILY
aspirin [Baby Aspirin] 81 mg Tablet,Chewable
81 mg PO DAILY
lidocaine 4 % adhesive patch,medicated
2 patch topical PRN PRN (Reason: pain)
Rx Instructions:
Apply to low back. 12 hours off, 12 hours on.
Referrals:
Korin Gaines CRNP [Family Provider] -
Interventions
Interventions:
*Risk Screen - Suicide Last Done: 04/06/24 07:45
*General Assessment Last Done: 04/06/24 07:45
*Neglect/Abuse Screening Last Done: 04/06/24 07:45
ED- Fall Risk Assessment Last Done: 04/06/24 08:23
*ED COVID-19 Vaccine History Last Done: 04/06/24 07:45
*Nursing Disposition Last Done: 04/06/24 10:55
ED-Musculoskeletal Assessment Last Done: 04/06/24 08:21
ED- Neurological Assessment Last Done: 04/06/24 08:21
ED-Skin Assessment Last Done: 04/06/24 08:21
Discharge Date and Time
Discharge Date/Time: 04/06/24 10:55
Print Language: SERBIAN
[2024-04-06 10:15] VITALS: BP 137/67
--- NOTE | 2024-04-06 10:33 | EDRN ---
Pacemaker interrogated at this time aydee HUTCHISON notified, awaiting results of interrogation.
== END 2024-04-06 10:55 | disposition home or self-care (01) ==
LOC: EMR 07:41
PROVIDERS: Physician Assistant; EMERGENCY PHYSICIAN Emergency Medicine; FAMILY PHYSICIAN Nurse Practitioner Family
DX: S09.90XA Unspecified injury of head, initial encounter (principal); W19.XXXA Unspecified fall, initial encounter; R29.6 Repeated falls
CPT/HCPCS: 99284; 70450; 80053; 80178; 85025

== ENCOUNTER → 2024-04-11 14:04 | Outpatient (REF) | payer MEDICARE, OTHER, SELFPAY | LOC: EMG 14:04 | PROVIDERS: ATTENDING PHYSICIAN Nurse Practitioner Family | DX: G62.89 Other specified polyneuropathies (principal); M79.605 Pain in left leg | CPT/HCPCS: 73590; 95886; 95910 ==

== ENCOUNTER → 2024-04-15 09:09 | Outpatient (REF) | payer MEDICARE, OTHER, SELFPAY | LOC: HWRAD 09:09 | PROVIDERS: FAMILY PHYSICIAN Nurse Practitioner Family | DX: N13.30 Unspecified hydronephrosis (principal) | CPT/HCPCS: 74150 ==

== ENCOUNTER → 2024-05-08 14:48 | Outpatient (REF) | payer MEDICARE, OTHER, SELFPAY ==
[2024-05-08 16:35] LABS: Albumin 3.6 g/dl (3.5-5.0); Blood Urea Nitrogen 22 mg/dl (7-17); Calcium 10.3 mg/dl (8.4-10.2); Carbon Dioxide 26 mmol/L (22-30); Chloride 104 mmol/L (98-107); Glucose 93 mg/dl (70-99); Magnesium 2.2 mg/dl (1.6-2.3); Phosphorus 3.7 mg/dl (2.5-4.5); Potassium 4.6 mmol/L (3.5-5.1); Sodium 137 mmol/L (135-145); eGFR 36.12
== END ==
LOC: REG 14:48
PROVIDERS: ATTENDING PHYSICIAN Internal Medicine; FAMILY PHYSICIAN Nurse Practitioner Family
DX: N18.32 Chronic kidney disease, stage 3b (principal); J90 Pleural effusion, not elsewhere classified
CPT/HCPCS: 36415; 71046; 80069; 83735

== ENCOUNTER → 2024-05-10 11:44 | Outpatient (REF) | payer MEDICARE, OTHER, SELFPAY ==
[2024-05-10 12:53] LABS: Urine Protein 22 mg/dl
== END ==
LOC: REG 11:44
PROVIDERS: ATTENDING PHYSICIAN Internal Medicine
DX: N18.32 Chronic kidney disease, stage 3b (principal)
CPT/HCPCS: 82570; 84156

== ENCOUNTER 2024-05-20 06:07 | Day surgery (SDC) | payer MEDICARE, OTHER, SELFPAY ==
[2024-05-15 13:44] VITALS: BMI 24.2
[2024-05-20] VITALS (14 sets, daily range): BP systolic 125–153; BP diastolic 58–80; BMI 24.2
[2024-05-20] MEDS: TYLENOL 1000 MG PO (07:16)
[2024-05-20] MEDS: HEPARIN 5000 UNITS SC (07:16)
[2024-05-20] MEDS: NORMOSOL-R/PLASMALYTE-A 1000 IV (07:16)
[2024-05-20 08:30] LABS: Turbo PTH 209 pg/ml (13.6-85.8)
[2024-05-20 09:22] LABS: Turbo PTH 103.4 pg/ml (13.6-85.8)
--- NOTE | 2024-05-20 11:00 | OR.RPT ---
Operative Report
Operative Report
Date of Operation: May 20, 2024
Preoperative Diagnosis: �Parathyroid hyperparathyroidism - E210
Postoperative Diagnosis: Same
Surgeon: Floyd Quinteros M.D.
Operation: Neck Re-exploration and Resection of Right Superior and Inferior Parathyroid Resection - [id number]
Anesthesia: GET
Estimated Blood Loss: 10 cc
Drains: None
Specimen: Right Superior and Inferior neck nodules, rule out parathyroid adenomas
Complications: �None
Procedure:
The patient was taken to the operating room and placed in the usual supine position. After adequate general endotracheal anesthesia was established, the patient's neck was extended, prepped, and draped in the typical sterile fashion. A 4 cm
transcervical incision was made two fingerbreadths above the sternal notch. The old incision was reopened with the #15 blade, and this was taken through the skin into the subcutaneous tissue. The underlying platysma muscle was divided, and
subplatysmal flaps were created superiorly to the thyroid cartilage and inferiorly to the sternal notch. Strap muscles were identified and at the midline.
Attention was turned to the patient's right side of the neck. The right thyroid lobe was mobilized medially. During this process, the right recurrent laryngeal nerve was identified and preserved throughout the surgery. The right upper and lower neck
nodules were identified and noted to be enlarged, excised, and sent them to the pathology department, which showed hypercellular parathyroid glands.
The attention was turned to the left side of the neck. The left thyroid lobe was mobilized medially. During this process, the left recurrent laryngeal nerve was identified and preserved throughout the surgery. The left upper neck nodule was
identified and noted to be normal in size. This was left in-situ. The intraoperative PTH levels normalized.
After obtaining adequate hemostasis, the strap muscles were reapproximated with #3-0 Vicryl in a running fashion. The platysma muscle was reapproximated with #3-0 Vicryl in an interrupted fashion, and the skin was approximated with #4-0 Monocryl in
a running subcuticular fashion. The Steri-Strips and sterile dressings were placed. The patient tolerated the procedure well. The final instrument, needle, and sponge counts were correct. The patient was extubated and transferred to the PACU.
[2024-05-20] MEDS: D5/0.45%NSS with KCL 20 MEQ 1000 IV (11:38)
[2024-05-20 13:04] LABS: ALT (SGPT) 25 U/L (0-35); AST (SGOT) 27 U/L (14-36); Albumin 4.2 g/dl (3.5-5.0); Alkaline Phosphatase 150 U/L (38-126); Blood Urea Nitrogen 21 mg/dl (7-17); Calcium 10.1 mg/dl (8.4-10.2); Carbon Dioxide 22 mmol/L (22-30); Chloride 109 mmol/L (98-107); Estimated Creatinine Clearance 28 ml/min; Glucose 141 mg/dl (70-99); Potassium 4.8 mmol/L (3.5-5.1); Sodium 140 mmol/L (135-145); Total Bilirubin 0.6 mg/dl (0.2-1.3); Total Protein 6.5 g/dl (6.3-8.2); eGFR 47.21
[2024-05-20] MEDS: ROXICODONE 5 MG PO ×2 (13:06→20:38)
[2024-05-20] MEDS: ANESTHETIC LOZENGE 1 LOZENGE PO (22:21)
[2024-05-21 03:09] VITALS: BP 140/77
[2024-05-21] MEDS: D5/0.45%NSS with KCL 20 MEQ 1000 IV (03:56)
[2024-05-21 07:08] LABS: ALT (SGPT) 16 U/L (0-35); AST (SGOT) 25 U/L (14-36); Albumin 4.1 g/dl (3.5-5.0); Alkaline Phosphatase 132 U/L (38-126); Blood Urea Nitrogen 20 mg/dl (7-17); Calcium 9.5 mg/dl (8.4-10.2); Carbon Dioxide 23 mmol/L (22-30); Chloride 111 mmol/L (98-107); Estimated Creatinine Clearance 26 ml/min; Glucose 146 mg/dl (70-99); Potassium 4.5 mmol/L (3.5-5.1); Sodium 139 mmol/L (135-145); Total Bilirubin 0.7 mg/dl (0.2-1.3); Total Protein 6.5 g/dl (6.3-8.2); eGFR 42.88
[2024-05-21 07:35] VITALS: BP 158/77
--- NOTE | 2024-05-21 09:17 | W.DS.TRANS ---
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
-
Discharge Instructions:
Sleep Apnea Risk Low
Diet As tolerated
Activity As tolerated
Driving Restrictions No driving for 1 week
Bathing Restrictions OK to Shower
Instructions:
Stand-Alone Forms:
Changes to Home Medications: No
Discharge Medications:
DC Medications w/original date entered in [employer]
atorvastatin 10 mg tablet 10 mg PO DAILY High Cholesterol 12/06/22
citalopram 40 mg tablet 40 mg PO HS Mental Health/Anxiety 12/06/22
lorazepam 0.5 mg tablet 0.5 mg PO BID Mental Health/Anxiety 12/06/22
trazodone 50 mg tablet 50 mg PO HS PRN Sleep 12/06/22
lithium carbonate 150 mg capsule 150 mg PO HS Mental Health/Anxiety 05/04/23
aripiprazole 2 mg tablet 5 mg PO HS Mental Health/Anxiety 10/12/23
acetaminophen 325 mg tablet 650 mg (2 x 325 mg) PO Q6H PRN mild pain #30 tabs 12/28/23
aspirin 81 mg chewable tablet 81 mg PO DAILY Blood Clot Prevention/Tx 04/02/24
psyllium 1 packet PO DAILY PRN constipation 04/02/24
amlodipine 5 mg tablet 5 mg PO DAILY Blood Pressure 05/15/24
lamotrigine 100 mg tablet 200 mg PO HS 05/15/24
losartan 50 mg tablet 50 mg PO DAILY Blood Pressure 05/15/24
polyethylene glycol 3350 17 gram oral powder packet (Miralax) 17 g PO DAILY PRN constipation 05/15/24
Home Medication Changes
Pending Results: No
--- NOTE | 2024-05-21 09:59 | CM ---
Met with pt at bedside
Pt reports she lives in a apartment at [facility]; elevator access; FF set-up
Independent at baseline with ADL's/household management, ambulates with rollator
DME - [employer]
SNF - has been in past, unable to recall facility
HH - has had in past
Has ride at discharge
PCP - Korin Gaines
Pharm - [facility]
Pt reports she will have transport home when discharged. Neighbor is available to assist if needed
Plan - anticipate home no needs
[2024-05-21 10:40] VITALS: BP 165/80
== END 2024-05-21 11:50 | disposition home or self-care (01) ==
LOC: SDS 06:07
PROVIDERS: ATTENDING PHYSICIAN Surgery
DX: D35.1 Benign neoplasm of parathyroid gland (principal); E21.0 Primary hyperparathyroidism
CPT/HCPCS: 60502; 88305; 88332; 80053; 83970; 88331; C1776; C9250

== ENCOUNTER → 2024-06-02 10:39 | Outpatient (REF) | payer MEDICARE, OTHER, SELFPAY ==
[2024-06-02 11:51] LABS: Urine Albumin Negative (Neg - Trace); Urine Bilirubin Negative (Negative); Urine Character Slightly Cloudy (Clear); Urine Color Yellow; Urine Glucose Negative (Negative); Urine Ketone Negative (Negative); Urine Leukocyte 3+ (Negative); Urine Nitrite Positive (Negative); Urine Occult Blood Negative (Negative); Urine Specific Gravity 1.005 (<1.030); Urine Urobilinogen Negative (Neg - 1+)
[2024-06-02 12:31] LABS: ALT (SGPT) 21 U/L (0-35); AST (SGOT) 25 U/L (14-36); Albumin 3.9 g/dl (3.5-5.0); Alkaline Phosphatase 143 U/L (38-126); Blood Urea Nitrogen 18 mg/dl (7-17); Calcium 9.8 mg/dl (8.4-10.2); Carbon Dioxide 24 mmol/L (22-30); Chloride 104 mmol/L (98-107); Glucose 92 mg/dl (70-99); Potassium 4.2 mmol/L (3.5-5.1); Sodium 138 mmol/L (135-145); Total Bilirubin 0.6 mg/dl (0.2-1.3); Total Protein 6.4 g/dl (6.3-8.2); eGFR 42.88
[2024-06-02 13:07] LABS: Urine Amorphous Seen; Urine Bacteria Many (Negative); Urine Red Blood Cell 0-2 /HPF (0-2); Urine White Cell 50-60 /HPF (0-5)
== END ==
LOC: RAD 10:39
PROVIDERS: ATTENDING PHYSICIAN Surgery; FAMILY PHYSICIAN Nurse Practitioner Family
DX: R05.1 Acute cough (principal); I10 Essential (primary) hypertension; Z95.0 Presence of cardiac pacemaker; Z98.890 Other specified postprocedural states; R19.7 Diarrhea, unspecified; E21.0 Primary hyperparathyroidism
CPT/HCPCS: 71046; 80053; 81003; 81015

== ENCOUNTER → 2024-06-27 15:21 | Outpatient (REF) | payer MEDICARE, OTHER, SELFPAY ==
[2024-06-27 16:52] LABS: ALT (SGPT) 25 U/L (0-35); AST (SGOT) 26 U/L (14-36); Albumin 3.7 g/dl (3.5-5.0); Alkaline Phosphatase 110 U/L (38-126); Blood Urea Nitrogen 14 mg/dl (7-17); Calcium 9.3 mg/dl (8.4-10.2); Carbon Dioxide 26 mmol/L (22-30); Chloride 109 mmol/L (98-107); Glucose 112 mg/dl (70-99); Phosphorus 4.2 mg/dl (2.5-4.5); Potassium 4.4 mmol/L (3.5-5.1); Sodium 142 mmol/L (135-145); Total Bilirubin 0.4 mg/dl (0.2-1.3); Total Protein 6.3 g/dl (6.3-8.2); eGFR 39.23
== END ==
LOC: REG 15:21
PROVIDERS: ATTENDING PHYSICIAN Nurse Practitioner Family; FAMILY PHYSICIAN Surgery
DX: E21.0 Primary hyperparathyroidism (principal); Z98.890 Other specified postprocedural states; N18.32 Chronic kidney disease, stage 3b; R80.9 Proteinuria, unspecified; Z90.89 Acquired absence of other organs
CPT/HCPCS: 36415; 80053; 84100; 84155; 84165

== ENCOUNTER → 2024-07-09 12:16 | Outpatient (REF) | payer MEDICARE, OTHER, SELFPAY ==
[2024-07-09 12:57] LABS: Urine Albumin 1+ (Neg - Trace); Urine Bilirubin Negative (Negative); Urine Character Clear (Clear); Urine Color Yellow; Urine Glucose Negative (Negative); Urine Ketone Negative (Negative); Urine Leukocyte 3+ (Negative); Urine Nitrite Positive (Negative); Urine Occult Blood Negative (Negative); Urine Specific Gravity 1.005 (<1.030); Urine Urobilinogen Negative (Neg - 1+)
[2024-07-09 13:40] LABS: Urine Bacteria Moderate (Negative); Urine White Cell 30-40 /HPF (0-5)
[2024-07-09 13:42] LABS: Urine Red Blood Cell 0-2 /HPF (0-2); Urine Squamous Cell 0-2 /LPF (Few); Urine Urothelial Cell 0-2 /LPF (FEW)
[2024-07-09 18:12] LABS: Protein/creatinine Ratio 1.7; Urine Protein 20 mg/dl
== END ==
LOC: REG 12:16
PROVIDERS: ATTENDING PHYSICIAN Nurse Practitioner Family
DX: Z98.890 Other specified postprocedural states (principal); N18.32 Chronic kidney disease, stage 3b; R80.9 Proteinuria, unspecified
CPT/HCPCS: 81003; 81015; 82570; 83521; 84156; 86335; 87077; 87086; 87186

== ENCOUNTER → 2024-07-16 12:36 | Outpatient (REF) | payer MEDICARE, OTHER, SELFPAY ==
[2024-07-16 13:44] LABS: % Basophils 0.2 % (0-2); % Eosinophils 0.9 % (0-6); % Immature Granulocytes 0.4 % (0-0.5); % Lymphocytes 20.6 % (20.5-51.1); % Monocytes 8.8 % (1.7-9.3); % Neutrophils 69.1 % (42.2-75.2); Absolute Lymphocytes 0.9 10^3/uL (1.2-3.4); Absolute Monocytes 0.4 10^3/uL (0.1-0.6); Absolute Neutrophils 3.2 10^3/uL (1.4-6.5); Hematocrit 31.9 % (37.0-47.0); Hemoglobin 10.4 g/dL (12.0-16.0); Mean Corp Hgb Conc. 32.6 g/dL (33.0-37.0); Mean Corpuscular Hgb 33.7 pg (27.0-31.0); Mean Corpuscular Volume 103.2 fL (81.0-99.0); Mean Platelet Volume 9.4 fL (7.4-10.4); Nucleated Red Blood Cells % 0 %; Platelet Count 169 10^3/uL (130-400); Red Blood Cell Count 3.09 10^6/uL (4.20-5.40); Red Cell Dist. Width 13.2 % (11.5-14.5); White Blood Cell Count 4.6 10^3/uL (4.8-10.8)
[2024-07-16 14:06] LABS: Iron 79 ug/dl (37-170)
[2024-07-16 14:16] LABS: Percent Saturation 25 % (20-50); Total Iron Binding Capacity 309 ug/dl (265-497)
== END ==
LOC: REG 12:36
PROVIDERS: ATTENDING PHYSICIAN Internal Medicine Hematology & Oncology; FAMILY PHYSICIAN Nurse Practitioner Family
DX: D64.9 Anemia, unspecified (principal); N18.30 Chronic kidney disease, stage 3 unspecified; D50.9 Iron deficiency anemia, unspecified; R71.8 Other abnormality of red blood cells; R53.82 Chronic fatigue, unspecified
CPT/HCPCS: 36415; 82728; 83540; 83550; 85025

== ENCOUNTER → 2024-08-11 14:01 | Outpatient (REF) | payer MEDICARE, OTHER, SELFPAY | LOC: EMG 14:01 | PROVIDERS: ATTENDING PHYSICIAN Orthopaedic Surgery; FAMILY PHYSICIAN Nurse Practitioner Family | DX: R20.0 Anesthesia of skin (principal) | CPT/HCPCS: 95886; 95909 ==

== ENCOUNTER → 2024-08-25 13:13 | Outpatient (REF) | payer MEDICARE, OTHER, SELFPAY | LOC: RAD 13:13 | PROVIDERS: ATTENDING PHYSICIAN Nurse Practitioner Family | DX: Z91.81 History of falling (principal) | CPT/HCPCS: 71101 ==

== ENCOUNTER → 2024-12-15 13:49 | Outpatient (REF) | payer MEDICARE, OTHER, SELFPAY ==
[2024-12-15 14:59] LABS: Albumin 4.6 g/dl (3.5-5.0); Blood Urea Nitrogen 24 mg/dl (7-17); Calcium 9.4 mg/dl (8.4-10.2); Carbon Dioxide 24 mmol/L (22-30); Chloride 109 mmol/L (98-107); Glucose 88 mg/dl (70-99); Potassium 4.7 mmol/L (3.5-5.1); Sodium 139 mmol/L (135-145); eGFR 33.22
== END ==
LOC: REG 13:49
PROVIDERS: ATTENDING PHYSICIAN Internal Medicine; FAMILY PHYSICIAN Nurse Practitioner Family
DX: N18.32 Chronic kidney disease, stage 3b (principal); R80.9 Proteinuria, unspecified
CPT/HCPCS: 36415; 80069; 84155; 84165

== ENCOUNTER → 2024-12-18 15:19 | Outpatient (REF) | payer MEDICARE, OTHER, SELFPAY | LOC: REG 15:19 | PROVIDERS: ATTENDING PHYSICIAN Internal Medicine; FAMILY PHYSICIAN Nurse Practitioner Family | DX: N18.32 Chronic kidney disease, stage 3b (principal); R80.9 Proteinuria, unspecified | CPT/HCPCS: 82570; 83520; 84156; 86335 ==

== ENCOUNTER → 2025-01-05 13:22 | Outpatient (REF) | payer MEDICARE, OTHER, SELFPAY ==
[2025-01-05 14:28] LABS: Hematocrit 33.5 % (37.0-47.0); Hemoglobin 10.6 g/dL (12.0-16.0); Mean Corp Hgb Conc. 31.6 g/dL (33.0-37.0); Mean Corpuscular Volume 103.4 fL (81.0-99.0); Nucleated Red Blood Cells % 0 %; Platelet Count 152 10^3/uL (130-400); Red Cell Dist. Width 12.4 % (11.5-14.5)
[2025-01-05 15:10] LABS: Iron 90 ug/dl (37-170)
[2025-01-05 15:19] LABS: Total Iron Binding Capacity 341 ug/dl (265-497)
[2025-01-05 15:31] LABS: Ferritin 152.0 ng/ml (11.1-264.0)
== END ==
LOC: REG 13:22
PROVIDERS: ATTENDING PHYSICIAN Nurse Practitioner Adult Health; FAMILY PHYSICIAN Nurse Practitioner Family
DX: R71.8 Other abnormality of red blood cells (principal); D64.9 Anemia, unspecified; N18.30 Chronic kidney disease, stage 3 unspecified; D50.9 Iron deficiency anemia, unspecified; R53.82 Chronic fatigue, unspecified
CPT/HCPCS: 36415; 82728; 83540; 83550; 85025

== ENCOUNTER → 2025-01-19 13:08 | Outpatient (REF) | payer MEDICARE, OTHER, SELFPAY | LOC: RAD 13:08 | PROVIDERS: ATTENDING PHYSICIAN Nurse Practitioner Family | DX: M25.562 Pain in left knee (principal); G89.29 Other chronic pain; M25.561 Pain in right knee | CPT/HCPCS: 73564 ==